=== PATIENT | female | born 1965 | race African-American/Black ===

== ENCOUNTER 2020-11-16 04:44 | Emergency (ER) | payer OTHER ==
[2020-11-16 06:09] LABS: Mean Corpuscular Volume 97.8 fL (78.0-98.0)
[2020-11-16] MEDS ORDERED: Morphine 4 MG/ML VIAL ONE (06:16)
[2020-11-16 06:23] LABS: Lymphocytes 34 % (21-51); MDiff Complete? YES; Monocytes 13 % (0-10); Neutrophil 53 % (42-75); Platelet Morphology Comment Appears Adequate; RBC Morphology Normal
[2020-11-16 06:24] LABS: Hemoglobin 15.2 g/dL (12.0-16.0); Mean Corpuscular HGB CONC 32.3 g/dL (32.0-36.0); Mean Corpuscular Hemoglobin 31.6 pg (27.0-31.0); Mean Platelet Volume 8.7 fL (7.4-10.4); Platelet Count 217 thou/uL (130-400); RBC Distribution Width 15.6 % (11.5-14.5); Red Blood Cell (RBC) Count 4.81 mill/uL (4.20-5.40); White Blood Cell (WBC) Count 10.5 thou/uL (4.8-10.8)
[2020-11-16 06:35] LABS: ALT (SGPT) 25 U/L (8-55); AST (SGOT) 24 U/L (5-34); Albumin 3.4 g/dL (3.5-5.0); Alkaline Phosphatase 135 U/L (40-110); Anion Gap 11 mmol/L (10-20); BUN (Urea Nitrogen) 29 mg/dL (9.8-20.1); Bilirubin, Total 2.7 mg/dL (0.2-1.2); Calc. Creatinine Clearance 0 mL/min (70-130); Calcium 9.2 mg/dL (7.8-10.44); Carbon Dioxide 25 mmol/L (22-29); Chloride 105 mmol/L (98-107); Globulin 3.8 g/dL (2.4-3.5); Glucose 100 mg/dL (70-105); Lipase 15 U/L (8-78); Potassium 4.4 mmol/L (3.5-5.1); Protein, Total 7.2 g/dL (6.0-8.3); Sodium 137 mmol/L (136-145)
[2020-11-16 06:57] LABS: CKMB 2.5 ng/mL (0-6.6)
[2020-11-16 07:04] LABS: Bilirubin Negative (Negative); Blood, Urine Trace (Negative); Clarity Clear (Clear); Glucose, Urine (Dipstick) Normal (Negative); Ketone, Urine Negative (Negative); Leukocyte 500 Leu/uL (Negative); Nitrite Negative (Negative); Protein, Urine (Dipstick) 10 mg/dL (Neg-Trace); Specific Gravity, Urine 1.015 (1.002-1.036)
[2020-11-16 07:12] LABS: Transitional Epithelial 0-3 HPF (None Seen)
[2020-11-16 07:13] LABS: Bacteria/HPF 1+ HPF (None Seen)
[2020-11-16] MEDS ORDERED: Iopamidol-370 76% 500 ML 1 ML ONE (10:40)
== END 2020-11-16 08:20 | disposition home or self-care (01) ==
LOC: ERS 04:44
DX: R10.13 Epigastric pain (principal); R10.11 Right upper quadrant pain; R60.1 Generalized edema; I11.0 Hypertensive heart disease with heart failure; I50.9 Heart failure, unspecified; E11.9 Type 2 diabetes mellitus without complications; J44.9 Chronic obstructive pulmonary disease, unspecified; I42.9 Cardiomyopathy, unspecified; Z86.73 Personal history of transient ischemic attack (TIA), and cerebral infarction without residual deficits; Z91.14 Patient's other noncompliance with medication regimen
CPT/HCPCS: 36415; 74177; 80053; 81003; 81015; 82553; 83690; 83880; 84484; 85025; 87086; 93005; 96374; J2270; Q9967

== ENCOUNTER 2020-11-24 00:53 | Inpatient (IN) | payer OTHER ==
[2020-11-24 02:09] LABS: Acetaminophen Less than 6.0 mcg/mL (10.0-30.0); Alcohol Less than 10 mg/dL (Less than 10); CK (CPK) 45 U/L (29-168); Salicylate Less than 8.0 mg/dL (15.0-30.0)
[2020-11-24 02:10] LABS: ALT (SGPT) 147 U/L (8-55); AST (SGOT) 78 U/L (5-34); Albumin 3.3 g/dL (3.5-5.0); Alkaline Phosphatase 184 U/L (40-110); Anion Gap 13 mmol/L (10-20); BUN (Urea Nitrogen) 30 mg/dL (9.8-20.1); Bilirubin, Total 1.4 mg/dL (0.2-1.2); Calc. Creatinine Clearance 0 mL/min (70-130); Calcium 8.7 mg/dL (7.8-10.44); Carbon Dioxide 23 mmol/L (22-29); Chloride 107 mmol/L (98-107); Globulin 3.7 g/dL (2.4-3.5); Glucose 120 mg/dL (70-105); Potassium 4.7 mmol/L (3.5-5.1); Sodium 138 mmol/L (136-145)
[2020-11-24 02:26] LABS: CKMB 2.1 ng/mL (0-6.6)
[2020-11-24] MEDS ORDERED: Furosemide 40 MG/4 ML VIAL ONE (02:50)
[2020-11-24 03:44] LABS: Bilirubin Negative (Negative); Blood, Urine 1+ (Negative); Clarity Clear (Clear); Glucose, Urine (Dipstick) Normal (Negative); Ketone, Urine Negative (Negative); Leukocyte 250 Leu/uL (Negative); Nitrite Negative (Negative); Protein, Urine (Dipstick) 50 mg/dL (Neg-Trace); Specific Gravity, Urine 1.012 (1.002-1.036); Squamous Epithelial 0-3 HPF (0-3); Urobilinogen Normal mg/dL (Less than 2); pH, Urine 5.5 (5.0-9.0)
[2020-11-24 03:48] LABS: Amphetamine Not Detected (NotDetected); Barbiturates Screen Not Detected (NotDetected); Benzodiazepine Screen Not Detected (NotDetected); Cocaine Metabolite Screen Detected (NotDetected); Methadone Not Detected (NotDetected); Methamphetamine Not Detected (NotDetected); Opiate Screen Not Detected (NotDetected); Oxycodone Screen Not Detected (NotDetected); Phencyclidine (PCP) Not Detected (NotDetected); THC/Cannabinoid Screen Not Detected (NotDetected); Tricyclic Screen Not Detected (NotDetected)
[2020-11-24 03:59] LABS: Bacteria/HPF Rare-Few HPF (None Seen)
[2020-11-24] MEDS ORDERED: Aspirin Chewable 81 MG TAB ONE (04:39)
[2020-11-24 07:04] LABS: Troponin I 0.025 ng/mL (< 0.028)
[2020-11-24] MEDS ORDERED: Ondansetron ODT 4 MG TAB PO PRN (07:58)
[2020-11-24] MEDS ORDERED: Albuterol 200 PUFF (6.7GM INHALER) INH PRN (08:09)
[2020-11-24] MEDS: Aspirin 81 mg Enteric Coated Tablet PO SCH (09:55)
[2020-11-24] MEDS: Furosemide 40 MG/4 ML VIAL SLOW IVP SCH (15:48)
[2020-11-24] MEDS: Carvedilol 3.125 MG TAB PO SCH (17:55)
[2020-11-24 18:18] LABS: SARS-CoV-2 PCR by NAA Not Detected (NotDetected)
[2020-11-24] MEDS ORDERED: Diazepam 5 MG TAB PO PRN (20:58)
[2020-11-24] MEDS ORDERED: Thiamine HCl 200 MG/2 ML VIAL IM SCH (21:00)
[2020-11-24] MEDS ORDERED: Diazepam 5 MG TAB PO SCH (21:00)
[2020-11-24] MEDS: Atorvastatin Calcium 40 MG TAB PO SCH (22:09)
[2020-11-24] MEDS: Acetaminophen 325 MG TAB PO PRN (22:20)
[2020-11-25] MEDS ORDERED: Diazepam 5 MG TAB PO PRN (04:00)
[2020-11-25] MEDS: Acetaminophen 325 MG TAB PO PRN ×2 (04:09→20:16)
[2020-11-25] MEDS ORDERED: Levothyroxine Sodium 50 MCG TAB ONE (06:05)
[2020-11-25] MEDS: Furosemide 40 MG/4 ML VIAL SLOW IVP SCH ×3 (06:07→15:08)
[2020-11-25] MEDS: Levothyroxine Sodium 50 MCG TAB PO SCH (08:35)
[2020-11-25] MEDS: Aspirin 81 mg Enteric Coated Tablet PO SCH (09:57)
[2020-11-25] MEDS: Magnesium Oxide 400 MG TAB PO SCH (09:57)
[2020-11-25] MEDS: Folic Acid 1 MG TAB PO SCH (09:57)
[2020-11-25] MEDS: Thiamine 100 MG TAB PO SCH (09:57)
[2020-11-25] MEDS: Carvedilol 3.125 MG TAB PO SCH ×2 (09:57→17:41)
[2020-11-25] MEDS: Multivitamin W/ Minerals 1 TAB PO SCH (09:57)
[2020-11-25 11:04] LABS: Anion Gap 16 mmol/L (10-20); BUN (Urea Nitrogen) 34 mg/dL (9.8-20.1); Calc. Creatinine Clearance 55 mL/min (70-130); Calcium 8.8 mg/dL (7.8-10.44); Carbon Dioxide 23 mmol/L (22-29); Chloride 105 mmol/L (98-107); Glucose 93 mg/dL (70-105); Magnesium 1.8 mg/dL (1.6-2.6); Potassium 4.4 mmol/L (3.5-5.1); Sodium 140 mmol/L (136-145)
[2020-11-25 12:07] LABS: Creatinine, Urine Less than 20.00 mg/dL (47-110); Protein, Urine Random Quant Less than 10 mg/dL (1-14)
[2020-11-25 12:14] LABS: White Blood Cell (WBC) Count 9.2 thou/uL (4.8-10.8)
[2020-11-25 12:15] LABS: Hemoglobin 14.7 g/dL (12.0-16.0); Lymphocytes 43 % (21-51); MDiff Complete? YES; Manual Diff?? YES; Mean Corpuscular HGB CONC 31.9 g/dL (32.0-36.0); Mean Corpuscular Hemoglobin 30.8 pg (27.0-31.0); Mean Corpuscular Volume 96.4 fL (78.0-98.0); Mean Platelet Volume 9.4 fL (7.4-10.4); Monocytes 2 % (0-10); Neutrophil 55 % (42-75); Platelet Count 185 thou/uL (130-400); RBC Distribution Width 15.7 % (11.5-14.5); Red Blood Cell (RBC) Count 4.76 mill/uL (4.20-5.40)
[2020-11-25 12:16] LABS: Platelet Morphology Comment Appears Adequate; RBC Morphology Normal
[2020-11-25 14:41] LABS: Hemoglobin A1c 6.3 % (4.0-6.0)
[2020-11-25 14:45] LABS: Cardiac Risk 4.1 (Less than 4.5)
[2020-11-25 14:58] LABS: Free T4 (Free Thyroxine) 0.78 ng/dL (0.70-1.48)
[2020-11-25 15:12] LABS: HBCM Index 0.24 S/CO (0-0.79); HBSAg Index 0.25 S/CO (0-0.99); Hep A IgM AB Non-Reactive (NonReactive); Hep A IgM S/CO 0.15 S/CO (0-0.79); Hep B Surf Ag Non-Reactive S/CO (NonReactive); Hep C IgG Ab Non-Reactive (NonReactive); Hep C Index 0.25 S/CO (0-0.79); Hepatitis B Core IgM Abs Non-Reactive (NonReactive)
[2020-11-25] MEDS ORDERED: Lisinopril 2.5 MG TAB PO SCH (15:15)
[2020-11-25 15:16] LABS: Phosphorus 4.1 mg/dL (2.3-4.7)
[2020-11-25 15:44] LABS: HIV (1/2) Antibody/Antigen Non-Reactive (NonReactive); HIV 1/2 INDEX 0.08 S/CO (<1.00)
[2020-11-25] MEDS: Atorvastatin Calcium 40 MG TAB PO SCH (20:16)
[2020-11-25] MEDS ORDERED: Melatonin 3 MG TAB PO PRN (22:53)
[2020-11-26] MEDS: Furosemide 40 MG/4 ML VIAL SLOW IVP SCH ×2 (05:06→15:25)
[2020-11-26] MEDS: Levothyroxine Sodium 50 MCG TAB PO SCH (05:06)
[2020-11-26 05:26] LABS: #Basophils 0.1 thou/uL (0.0-0.2); #Eosinphils 0.2 thou/uL (0.0-0.7); #Lymphocytes 3.3 thou/uL (1.20-3.40); #Monocytes 0.7 thou/uL (0.11-0.59); #Neutrophils 4.8 thou/uL (1.40-6.50); %Eosinophils 2.6 % (0.0-10.0); %Lymphocytes 36.4 % (21.0-51.0); %Monocytes 7.2 % (0.0-10.0); %Neutrophils 52.8 % (42.0-75.0); Hemoglobin 13.7 g/dL (12.0-16.0); Mean Corpuscular Hemoglobin 29.6 pg (27.0-31.0); Mean Corpuscular Volume 95.4 fL (78.0-98.0); Mean Platelet Volume 9.1 fL (7.4-10.4); Platelet Count 181 thou/uL (130-400); RBC Distribution Width 15.4 % (11.5-14.5); Red Blood Cell (RBC) Count 4.64 mill/uL (4.20-5.40)
[2020-11-26 05:55] LABS: ALT (SGPT) 76 U/L (8-55); AST (SGOT) 33 U/L (5-34); Albumin 2.9 g/dL (3.5-5.0); Alkaline Phosphatase 145 U/L (40-110); Anion Gap 13 mmol/L (10-20); BUN (Urea Nitrogen) 28 mg/dL (9.8-20.1); Bilirubin, Total 1.3 mg/dL (0.2-1.2); Calc. Creatinine Clearance 57 mL/min (70-130); Calcium 8.5 mg/dL (7.8-10.44); Carbon Dioxide 23 mmol/L (22-29); Chloride 104 mmol/L (98-107); Globulin 3.2 g/dL (2.4-3.5); Glucose 91 mg/dL (70-105); Magnesium 1.7 mg/dL (1.6-2.6); Potassium 3.9 mmol/L (3.5-5.1); Protein, Total 6.1 g/dL (6.0-8.3); Sodium 136 mmol/L (136-145)
[2020-11-26] MEDS: Lisinopril 2.5 MG TAB PO SCH (09:12)
[2020-11-26] MEDS: Aspirin 81 mg Enteric Coated Tablet PO SCH (09:12)
[2020-11-26] MEDS: Multivitamin W/ Minerals 1 TAB PO SCH (09:12)
[2020-11-26] MEDS: Magnesium Oxide 400 MG TAB PO SCH (09:12)
[2020-11-26] MEDS: Thiamine 100 MG TAB PO SCH (09:12)
[2020-11-26] MEDS: Folic Acid 1 MG TAB PO SCH (09:12)
[2020-11-26] MEDS: Carvedilol 3.125 MG TAB PO SCH ×2 (09:15→16:24)
[2020-11-26] MEDS: Atorvastatin Calcium 40 MG TAB PO SCH (21:44)
[2020-11-27 04:49] VITALS: BMI 27.6
[2020-11-27 05:13] LABS: #Basophils 0.1 thou/uL (0.0-0.2); #Eosinphils 0.3 thou/uL (0.0-0.7); #Lymphocytes 3.2 thou/uL (1.20-3.40); #Monocytes 0.7 thou/uL (0.11-0.59); #Neutrophils 3.8 thou/uL (1.40-6.50); %Basophils 1.1 % (0.0-1.0); %Eosinophils 3.2 % (0.0-10.0); %Lymphocytes 39.4 % (21.0-51.0); %Monocytes 8.8 % (0.0-10.0); %Neutrophils 47.5 % (42.0-75.0); Hemoglobin 13.6 g/dL (12.0-16.0); Mean Corpuscular Hemoglobin 29.5 pg (27.0-31.0); Mean Corpuscular Volume 95.1 fL (78.0-98.0); Platelet Count 185 thou/uL (130-400); RBC Distribution Width 15.5 % (11.5-14.5); Red Blood Cell (RBC) Count 4.63 mill/uL (4.20-5.40); White Blood Cell (WBC) Count 8.1 thou/uL (4.8-10.8)
[2020-11-27 05:39] LABS: ALT (SGPT) 62 U/L (8-55); AST (SGOT) 25 U/L (5-34); Alkaline Phosphatase 142 U/L (40-110); Anion Gap 10 mmol/L (10-20); BUN (Urea Nitrogen) 27 mg/dL (9.8-20.1); Bilirubin, Total 1.2 mg/dL (0.2-1.2); Calc. Creatinine Clearance 55 mL/min (70-130); Calcium 8.6 mg/dL (7.8-10.44); Carbon Dioxide 28 mmol/L (22-29); Chloride 104 mmol/L (98-107); Globulin 3.3 g/dL (2.4-3.5); Glucose 88 mg/dL (70-105); Protein, Total 6.3 g/dL (6.0-8.3); Sodium 138 mmol/L (136-145)
[2020-11-27] MEDS: Levothyroxine Sodium 50 MCG TAB PO SCH (05:40)
[2020-11-27 07:23] VITALS: BP 110/84; TEMP 98
[2020-11-27] MEDS: Folic Acid 1 MG TAB PO SCH (08:53)
[2020-11-27] MEDS: Thiamine 100 MG TAB PO SCH (08:53)
[2020-11-27] MEDS: Multivitamin W/ Minerals 1 TAB PO SCH (08:54)
[2020-11-27] MEDS: Magnesium Oxide 400 MG TAB PO SCH (08:54)
[2020-11-27] MEDS: Aspirin 81 mg Enteric Coated Tablet PO SCH (08:54)
[2020-11-27] MEDS: Lisinopril 2.5 MG TAB PO SCH (08:54)
[2020-11-27] MEDS: Carvedilol 3.125 MG TAB PO SCH (08:54)
[2020-11-27] MEDS ORDERED: Furosemide 40 MG TAB PO SCH (09:00)
== END 2020-11-27 11:10 | disposition home or self-care (01) | DRG 314 ==
LOC: ERS 00:53 → ERHOLD 04:39 → 2NO 08:35
PROVIDERS: ADMIT Student in an Organized Health Care Education/Training Program; ATTEND Family Medicine
DX: I42.7 Cardiomyopathy due to drug and external agent (principal); I50.23 Acute on chronic systolic (congestive) heart failure; I13.0 Hypertensive heart and chronic kidney disease with heart failure and stage 1 through stage 4 chronic kidney disease, or unspecified chronic kidney disease; R45.851 Suicidal ideations; N17.9 Acute kidney failure, unspecified; I47.2 Ventricular tachycardia; I42.0 Dilated cardiomyopathy; F41.9 Anxiety disorder, unspecified; F14.10 Cocaine abuse, uncomplicated; J44.9 Chronic obstructive pulmonary disease, unspecified; K76.1 Chronic passive congestion of liver; F32.9 Major depressive disorder, single episode, unspecified; E11.22 Type 2 diabetes mellitus with diabetic chronic kidney disease; N18.9 Chronic kidney disease, unspecified; E03.9 Hypothyroidism, unspecified; T40.5X5A Adverse effect of cocaine, initial encounter; Z20.822 Contact with and (suspected) exposure to COVID-19; I25.10 Atherosclerotic heart disease of native coronary artery without angina pectoris; F17.210 Nicotine dependence, cigarettes, uncomplicated; Z86.73 Personal history of transient ischemic attack (TIA), and cerebral infarction without residual deficits; Z88.8 Allergy status to other drugs, medicaments and biological substances; Z79.82 Long term (current) use of aspirin; Z79.51 Long term (current) use of inhaled steroids; Z91.19 Patient's noncompliance with other medical treatment and regimen; Z71.51 Drug abuse counseling and surveillance of drug abuser
CPT/HCPCS: 36415; 36416; 71045; 76770; 80048; 80053; 80061; 80074; 80306; 80307; 81003; 81015; 82550; 82553; 82570; 83036; 83735; 83880; 84100; 84156; 84439; 84443; 84481; 84484; 85025; 87389; 93005; 93306; 93798; 96374; 97139; J1940; J3411; J3475; J3490; U0003; U0005

== ENCOUNTER 2020-12-25 11:29 | Emergency (ER) | payer OTHER ==
[2020-12-25] MEDS ORDERED: Boostrix 0.5 ML (Tdap) VIAL ONE (13:35)
[2020-12-25] MEDS ORDERED: ceFAZolin 2 GM/DEX 5% 100 ML BAG ONE (13:35)
== END 2020-12-25 12:57 | disposition home or self-care (01) ==
LOC: ERS 11:29
DX: K04.7 Periapical abscess without sinus (principal); K02.9 Dental caries, unspecified; M79.604 Pain in right leg; I11.0 Hypertensive heart disease with heart failure; I50.9 Heart failure, unspecified; I43 Cardiomyopathy in diseases classified elsewhere; E11.9 Type 2 diabetes mellitus without complications; J44.9 Chronic obstructive pulmonary disease, unspecified
CPT/HCPCS: 90715; 99283

== ENCOUNTER 2021-01-17 13:50 | Inpatient (IN) | payer OTHER ==
[~2021-01-17 13:50] MED LIST: Iopamidol-370 76% 500 ML 1 ML ONE
[2021-01-17] MEDS ORDERED: Ondansetron PF 4 MG/2 ML Vial ONE (16:10)
[2021-01-17] MEDS ORDERED: Albuterol 200 PUFF (6.7GM INHALER) ONE (16:10)
[2021-01-17 16:28] LABS: #Eosinphils 0.1 thou/uL (0.0-0.7); #Lymphocytes 2.6 thou/uL (1.20-3.40); #Monocytes 0.6 thou/uL (0.11-0.59); %Basophils 0.8 % (0.0-1.0); %Eosinophils 1.3 % (0.0-10.0); %Lymphocytes 41.1 % (21.0-51.0); %Neutrophils 47.8 % (42.0-75.0); Hemoglobin 16.1 g/dL (12.0-16.0); Mean Corpuscular HGB CONC 31.2 g/dL (32.0-36.0); Mean Corpuscular Hemoglobin 29.8 pg (27.0-31.0); Mean Corpuscular Volume 95.4 fL (78.0-98.0); Mean Platelet Volume 9.1 fL (7.4-10.4); Platelet Count 188 thou/uL (130-400); RBC Distribution Width 14.6 % (11.5-14.5); White Blood Cell (WBC) Count 6.3 thou/uL (4.8-10.8)
[2021-01-17 16:46] LABS: ALT (SGPT) 18 U/L (8-55); AST (SGOT) 31 U/L (5-34); Albumin 3.5 g/dL (3.5-5.0); Alkaline Phosphatase 143 U/L (40-110); Anion Gap 17 mmol/L (10-20); BUN (Urea Nitrogen) 32 mg/dL (9.8-20.1); Bilirubin, Total 3.1 mg/dL (0.2-1.2); Calc. Creatinine Clearance 0 mL/min (70-130); Calcium 9.5 mg/dL (7.8-10.44); Carbon Dioxide 24 mmol/L (22-29); Chloride 101 mmol/L (98-107); Globulin 4.2 g/dL (2.4-3.5); Glucose 105 mg/dL (70-105); Lipase 13 U/L (8-78); Potassium 4.5 mmol/L (3.5-5.1); Protein, Total 7.7 g/dL (6.0-8.3); Sodium 137 mmol/L (136-145)
[2021-01-17 17:25] LABS: Bacteria/HPF None Seen HPF (None Seen); Bilirubin 1+ (Negative); Blood, Urine Negative (Negative); Clarity Clear (Clear); Glucose, Urine (Dipstick) Normal (Negative); Ketone, Urine Trace mg/dL (Negative); Leukocyte 25 Leu/uL (Negative); Nitrite Negative (Negative); Protein, Urine (Dipstick) 70 mg/dL (Neg-Trace); RBC/HPF 0-3 HPF (0-3); Specific Gravity, Urine 1.028 (1.002-1.036); Squamous Epithelial 0-3 HPF (0-3); WBC/HPF 0-3 HPF (0-3)
[2021-01-17 17:41] LABS: CKMB 1.8 ng/mL (0-6.6)
[2021-01-17] MEDS ORDERED: Aspirin Chewable 81 MG TAB ONE (18:26)
[2021-01-17] MEDS ORDERED: Carvedilol 3.125 MG TAB PO SCH (18:30)
[2021-01-17 20:19] LABS: Troponin I 0.038 ng/mL (< 0.028)
[2021-01-17] MEDS ORDERED: Sodium Chloride 0.9% 1,000 ML IV SCH (21:15)
[2021-01-17] MEDS ORDERED: Ondansetron PF 4 MG/2 ML Vial IVP PRN (21:23)
[2021-01-17 22:10] LABS: SARS-CoV-2 NAA Rapid Test Not Detected (NotDetected)
[2021-01-17] MEDS: GUAIFENESIN SF SOLN 200 MG/10 ML UDCUP PO PRN (23:19)
[2021-01-17] MEDS: Acetaminophen 325 MG TAB PO PRN (23:19)
[2021-01-17 23:25] LABS: Troponin I 0.036 ng/mL (< 0.028)
[2021-01-18] MEDS ORDERED: Dextrose 5% in Water 1,000 ML IV PRN (00:05)
[2021-01-18] MEDS ORDERED: Nitroglycerin 0.4 MG TAB (25 Tab Bottle) SL PRN (00:09)
[2021-01-18] MEDS ORDERED: Sodium Chloride 0.9% 1,000 ML IV SCH (00:15)
[2021-01-18] MEDS ORDERED: Benzonatate 100 MG CAP PO PRN (00:23)
[2021-01-18] MEDS ORDERED: Azithromycin 500 MG in Sodium Chloride 0.9% 250 ML 250 ML IVPB SCH (01:00)
[2021-01-18 01:04] LABS: Amphetamine Not Detected (NotDetected); Barbiturates Screen Not Detected (NotDetected); Benzodiazepine Screen Not Detected (NotDetected); Cocaine Metabolite Screen Detected (NotDetected); Methadone Not Detected (NotDetected); Methamphetamine Not Detected (NotDetected); Opiate Screen Not Detected (NotDetected); Oxycodone Screen Not Detected (NotDetected); Phencyclidine (PCP) Not Detected (NotDetected); THC/Cannabinoid Screen Detected (NotDetected); Tricyclic Screen Not Detected (NotDetected)
[2021-01-18] MEDS ORDERED: Sodium Bicarb 50 MEQ/50 ML Abboject 8.4% SYRINGE ONE ×3 (01:36→03:39)
[2021-01-18] MEDS ORDERED: EPINEPHrine 1 MG/10 ML Abboject SYRINGE ONE (01:36)
[2021-01-18] MEDS: EPINEPHrine 4 MG in Dextrose 5% in Water 250 ML IV PRN ×3 (01:55→10:25)
[2021-01-18] MEDS: Norepinephrine 8 MG/0.9% NS 250 ML IVPB SCH ×2 (02:15→20:14)
[2021-01-18] MEDS ORDERED: Norepinephrine 8 MG/0.9% NS 250 ML ONE (02:17)
[2021-01-18 02:23] LABS: Actual Bicarbonate (HCO3a) 11.9 mEq/L (22-28); Base Excess (BEa) -17.5 mEq/L (-2.0 to +3.0); CO2 Tension 40.7 mmHg (35.0-45.0); Calcium, Ionized (arterial) 1.09 mmol/L (1.12-1.30); Carboxyhemoglobin (COHb) 0.6 gm% (0.0-3.0); Hemoglobin (Hb) 15.5 g/dL (12.0-16.0); O2 Tension (PaO2), arterial 70.1 mmHg (80.0-100.0)
[2021-01-18 02:25] LABS: pH, Arterial 7.08 (7.35-7.45)
[2021-01-18 02:26] LABS: Puncture Site RRA
[2021-01-18 02:28] LABS: ALV-art Gradient 592.025 mmHg (0-20)
[2021-01-18] MEDS ORDERED: Sodium Bicarb 50 MEQ/50 ML Abboject 8.4% SYRINGE IVP SCH ×2 (02:45→03:45)
[2021-01-18] MEDS: Sodium Bicarbonate 150 MEQ in Dextrose 5 %-0.45 % NaCl 1,000 ML IV SCH ×2 (03:43→14:45)
[2021-01-18] MEDS ORDERED: Morphine 2 MG/ML VIAL SLOW IVP PRN (05:00)
[2021-01-18] MEDS ORDERED: DISCONTINUE PREVIOUS NARCOTIC PAIN MEDICATIONS AND BENZODIAZEPINES FS SCH (05:00)
[2021-01-18] MEDS ORDERED: Propofol BOLUS 1,000 MG/100 ML VIAL IV PRN (05:00)
[2021-01-18] MEDS ORDERED: Fentanyl CADD 100 ML IV SCH (05:00)
[2021-01-18] MEDS ORDERED: Fentanyl BOLUS 250 ML IVPB PRN (05:00)
[2021-01-18 05:09] LABS: BUN (Urea Nitrogen) 28 mg/dL (9.8-20.1); Calc. Creatinine Clearance 44 mL/min (70-130)
[2021-01-18 05:11] LABS: Magnesium 1.9 mg/dL (1.6-2.6)
[2021-01-18 05:26] LABS: Band 10 % (5-11); Hemoglobin 13.8 g/dL (12.0-16.0); Lymphocytes 28 % (21-51); MDiff Complete? YES; Mean Corpuscular HGB CONC 31.1 g/dL (32.0-36.0); Mean Corpuscular Hemoglobin 30.6 pg (27.0-31.0); Mean Corpuscular Volume 98.5 fL (78.0-98.0); Mean Platelet Volume 8.6 fL (7.4-10.4); Metamyelocyte 1 % (0-0); Monocytes 2 % (0-10); Neutrophil 50 % (42-75); Platelet Count 121 thou/uL (130-400); RBC Distribution Width 14.9 % (11.5-14.5); Reactive Lymphocytes 9 % (0-10); Red Blood Cell (RBC) Count 4.52 mill/uL (4.20-5.40); White Blood Cell (WBC) Count 10.7 thou/uL (4.8-10.8)
[2021-01-18 05:31] LABS: ALT (SGPT) 29 U/L (8-55); AST (SGOT) 70 U/L (5-34); Albumin 2.3 g/dL (3.5-5.0); Alkaline Phosphatase 123 U/L (40-110); Anion Gap 26 mmol/L (10-20); Bilirubin, Total 2.6 mg/dL (0.2-1.2); Calcium 6.9 mg/dL (7.8-10.44); Carbon Dioxide 18 mmol/L (22-29); Chloride 106 mmol/L (98-107); Globulin 3.1 g/dL (2.4-3.5); Glucose 45 mg/dL (70-105); Potassium 3.9 mmol/L (3.5-5.1); Protein, Total 5.4 g/dL (6.0-8.3); Sodium 147 mmol/L (136-145)
[2021-01-18] MEDS ORDERED: Dextrose 50% Abboject 50 ML SYRINGE ONE ×2 (05:31→05:32)
[2021-01-18] MEDS: Dextrose 50% Abboject 50 ML SYRINGE SLOW IVP PRN ×2 (05:40→05:56)
[2021-01-18] MEDS ORDERED: Vecuronium 10 MG VIAL ONE (05:43)
[2021-01-18] MEDS ORDERED: Sterile Water 10 ML ONE (05:44)
[2021-01-18] MEDS: Lorazepam 2 MG/ML VIAL SLOW IVP PRN ×2 (05:44→14:01)
[2021-01-18] MEDS ORDERED: Vecuronium 10 MG VIAL IV PRN (05:58)
[2021-01-18] MEDS ORDERED: methylPREDNISolone Sod Succ/PF 125 MG/2 ML VIAL IVP SCH (06:00)
[2021-01-18] MEDS: methylPREDNISolone Sod Succ 40 MG VIAL IVP SCH ×3 (07:03→17:01)
[2021-01-18] MEDS ORDERED: predniSONE 20 MG TAB PO SCH (09:00)
[2021-01-18] MEDS: Morphine 4 MG/ML VIAL SLOW IVP PRN (14:01)
[2021-01-18 21:14] LABS: Anion Gap 18 mmol/L (10-20); BUN (Urea Nitrogen) 34 mg/dL (9.8-20.1); Calc. Creatinine Clearance 35 mL/min (70-130); Calcium 7.5 mg/dL (7.8-10.44); Carbon Dioxide 26 mmol/L (22-29); Chloride 104 mmol/L (98-107); Glucose 189 mg/dL (70-105); Magnesium 1.5 mg/dL (1.6-2.6); Sodium 145 mmol/L (136-145)
[2021-01-18 21:16] LABS: Potassium 2.9 mmol/L (3.5-5.1)
[2021-01-18] MEDS ORDERED: Magnesium Sulfate 4 GM in Sodium Chloride 0.9% 250 ML 250 ML IVPB SCH (22:30)
[2021-01-18] MEDS: Potassium Bicarbonate/Cit Ac 20 MEQ TAB PER TUBE SCH (22:50)
[2021-01-19] MEDS: Potassium Bicarbonate/Cit Ac 20 MEQ TAB PER TUBE SCH ×2 (00:50→01:58)
[2021-01-19] MEDS: Sodium Bicarbonate 150 MEQ in Dextrose 5 %-0.45 % NaCl 1,000 ML IV SCH ×2 (00:50→10:22)
[2021-01-19] MEDS: methylPREDNISolone Sod Succ 40 MG VIAL IVP SCH ×3 (00:50→11:43)
[2021-01-19] MEDS: Lorazepam 2 MG/ML VIAL SLOW IVP PRN ×4 (01:58→18:14)
[2021-01-19 05:05] LABS: Anion Gap 18 mmol/L (10-20); BUN (Urea Nitrogen) 32 mg/dL (9.8-20.1); Calc. Creatinine Clearance 35 mL/min (70-130); Calcium 7.9 mg/dL (7.8-10.44); Carbon Dioxide 29 mmol/L (22-29); Chloride 103 mmol/L (98-107); Glucose 183 mg/dL (70-105); Magnesium 2.5 mg/dL (1.6-2.6); Potassium 4.6 mmol/L (3.5-5.1); Sodium 145 mmol/L (136-145)
[2021-01-19] MEDS: HumaLOG 300 UNITS/3 ML VIAL SC PRN ×3 (09:54→22:30)
[2021-01-19] MEDS: Midazolam HCl 2 mg/2 ml Vial SLOW IVP PRN (11:42)
[2021-01-19] MEDS: Acetaminophen 325 MG TAB PO PRN (11:44)
[2021-01-19] MEDS: Norepinephrine 8 MG/0.9% NS 250 ML IVPB SCH (12:34)
[2021-01-19] MEDS ORDERED: Metoprolol Tartrate 5 MG/5 ML VIAL ONE (13:25)
[2021-01-19] MEDS ORDERED: Phenylephrine 40 MG in Sodium Chloride 0.9% 250 ML 250 ML IVPB SCH (13:30)
[2021-01-19] MEDS ORDERED: Piperacillin/Tazobactam 2.5 GM in Sodium Chloride 0.9% 100 ML IVPB SCH ×2 (13:45→14:00)
[2021-01-19] MEDS ORDERED: Vancomycin HCl 1.25 GM in Sodium Chloride 0.9% 250 ML 300 ML IVPB SCH (13:45)
[2021-01-19] MEDS: Lorazepam 1 MG TAB PO SCH ×2 (14:33→19:44)
[2021-01-19] MEDS: Vancomycin HCl 1.25 GM in Sodium Chloride 0.9% 250 ML 300 ML IVPB SCH (14:35)
[2021-01-19 16:14] LABS: Actual Bicarbonate (HCO3a) 26.7 mEq/L (22-28); Base Excess (BEa) 8.3 mEq/L (-2.0 to +3.0); Calcium, Ionized (arterial) 0.99 mmol/L (1.12-1.30); Carboxyhemoglobin (COHb) 1.1 gm% (0.0-3.0); Hemoglobin (Hb) 15.7 g/dL (12.0-16.0); O2 Tension (PaO2), arterial 69.8 mmHg (80.0-100.0); Potassium - ABG Lab 3.15 mmol/L (3.70-5.30)
[2021-01-19 16:37] LABS: pH, Arterial 7.69 (7.35-7.45)
[2021-01-19 16:38] LABS: CO2 Tension 22.8 mmHg (35.0-45.0); Puncture Site LRA
[2021-01-19] MEDS: pyridOXINE 50 MG (B6) TAB PO SCH (19:59)
[2021-01-19] MEDS: Ascorbic Acid 500 mg Chewable Tablet PO SCH (19:59)
[2021-01-19] MEDS ORDERED: Famotidine 20 MG TAB PO SCH (21:00)
[2021-01-19] MEDS ORDERED: Enoxaparin Sodium 40 MG/0.4 ML SYRINGE SC SCH (21:00)
[2021-01-19] MEDS: Piperacillin/Tazobactam 2.5 GM in Sodium Chloride 0.9% 100 ML IVPB SCH (22:29)
[2021-01-20] MEDS: Lorazepam 1 MG TAB PO SCH ×4 (00:48→19:45)
[2021-01-20] MEDS: Piperacillin/Tazobactam 2.5 GM in Sodium Chloride 0.9% 100 ML IVPB SCH ×3 (05:13→21:03)
[2021-01-20] MEDS: pyridOXINE 50 MG (B6) TAB PO SCH ×2 (09:04→19:46)
[2021-01-20] MEDS: Ascorbic Acid 500 mg Chewable Tablet PO SCH ×2 (09:04→19:45)
[2021-01-20] MEDS: Cholecalciferol (Vitamin D3) 400 UNITS TAB PO SCH (09:04)
[2021-01-20] MEDS: Cyanocobalamin (Vitamin B-12) 1,000 MCG TAB PO SCH (09:14)
[2021-01-20 12:17] LABS: ALT (SGPT) 32 U/L (8-55); AST (SGOT) 57 U/L (5-34); Albumin 2.2 g/dL (3.5-5.0); Alkaline Phosphatase 112 U/L (40-110); Anion Gap 15 mmol/L (10-20); BUN (Urea Nitrogen) 38 mg/dL (9.8-20.1); Bilirubin, Total 4.7 mg/dL (0.2-1.2); Calc. Creatinine Clearance 34 mL/min (70-130); Carbon Dioxide 29 mmol/L (22-29); Chloride 108 mmol/L (98-107); Globulin 3.1 g/dL (2.4-3.5); Glucose 162 mg/dL (70-105); Potassium 3.1 mmol/L (3.5-5.1); Protein, Total 5.3 g/dL (6.0-8.3); Sodium 149 mmol/L (136-145)
[2021-01-20 12:18] LABS: INR-International Normal Ratio 1.3; PTT 34.8 sec (22.9-36.1); Prothrombin Time 16.4 sec (12.0-14.7)
[2021-01-20 12:36] LABS: Free T4 (Free Thyroxine) 0.73 ng/dL (0.70-1.48); Thyroid Stimulating Hormone 0.6911 uIU/mL (0.35-4.94)
[2021-01-20 13:00] LABS: Vitamin D, 25 Hydroxy Less than 48.0 ng/ml (> 30.0)
[2021-01-20 13:13] LABS: Band 35 % (5-11); Helmet Cells SLIGHT = 2-5 cells (100X) (0-1/hpf); Hemoglobin 13.7 g/dL (12.0-16.0); Hypochromia SLIGHT = 6-15 cells (100X) (0-5/hpf); Lymphocytes 1 % (21-51); MDiff Complete? YES; Mean Corpuscular HGB CONC 31.7 g/dL (32.0-36.0); Mean Corpuscular Hemoglobin 30.4 pg (27.0-31.0); Mean Corpuscular Volume 95.8 fL (78.0-98.0); Mean Platelet Volume 10.8 fL (7.4-10.4); Monocytes 2 % (0-10); Neutrophil 60 % (42-75); Platelet Count 80 thou/uL (130-400); Platelet Morphology Comment Appears Decreased; Polychromasia MODERATE = 3-4 cells (100X) (0-2/hpf); RBC Distribution Width 15.1 % (11.5-14.5); Reactive Lymphocytes 2 % (0-10); Red Blood Cell (RBC) Count 4.53 mill/uL (4.20-5.40); Schistocytes SLIGHT = 2-5 cells (100X) (0-1/hpf); Target Cells SLIGHT = 2-5 cells (100X) (0-1/hpf); Tear Drops SLIGHT = 2-5 cells (100X) (0-1/hpf)
[2021-01-20] MEDS: Vancomycin HCl 1.25 GM in Sodium Chloride 0.9% 250 ML 300 ML IVPB SCH (14:48)
[2021-01-20] MEDS ORDERED: Potassium Chloride 20 MEQ TAB PER TUBE SCH (17:00)
[2021-01-20] MEDS: Famotidine 20 MG TAB PO SCH (19:46)
[2021-01-20] MEDS: Enoxaparin Sodium 30 MG/0.3 ML SYRINGE SC SCH (21:06)
[2021-01-20] MEDS: Midazolam HCl 2 mg/2 ml Vial SLOW IVP PRN (22:00)
[2021-01-20] MEDS: Morphine 4 MG/ML VIAL SLOW IVP PRN (22:00)
[2021-01-21] MEDS: Lorazepam 1 MG TAB PO SCH ×3 (01:51→13:18)
[2021-01-21] MEDS: Midazolam HCl 2 mg/2 ml Vial SLOW IVP PRN ×2 (01:51→05:59)
[2021-01-21 04:20] LABS: ALT (SGPT) 32 U/L (8-55); AST (SGOT) 46 U/L (5-34); Albumin 2.3 g/dL (3.5-5.0); Alkaline Phosphatase 117 U/L (40-110); Anion Gap 12 mmol/L (10-20); BUN (Urea Nitrogen) 42 mg/dL (9.8-20.1); Bilirubin, Total 3.6 mg/dL (0.2-1.2); Calc. Creatinine Clearance 34 mL/min (70-130); Calcium 8.2 mg/dL (7.8-10.44); Carbon Dioxide 33 mmol/L (22-29); Chloride 106 mmol/L (98-107); Globulin 3.1 g/dL (2.4-3.5); Glucose 125 mg/dL (70-105); Potassium 3.7 mmol/L (3.5-5.1); Protein, Total 5.4 g/dL (6.0-8.3); Sodium 147 mmol/L (136-145)
[2021-01-21] MEDS: Piperacillin/Tazobactam 2.5 GM in Sodium Chloride 0.9% 100 ML IVPB SCH ×3 (05:07→21:01)
[2021-01-21] MEDS: Ascorbic Acid 500 mg Chewable Tablet PO SCH ×2 (08:46→20:49)
[2021-01-21] MEDS: Cholecalciferol (Vitamin D3) 400 UNITS TAB PO SCH (08:46)
[2021-01-21] MEDS: Cyanocobalamin (Vitamin B-12) 1,000 MCG TAB PO SCH (08:46)
[2021-01-21] MEDS: pyridOXINE 50 MG (B6) TAB PO SCH ×2 (08:46→20:50)
[2021-01-21 14:19] LABS: Hemoglobin 14.2 g/dL (12.0-16.0); Mean Corpuscular HGB CONC 30.7 g/dL (32.0-36.0); Mean Corpuscular Hemoglobin 29.9 pg (27.0-31.0); Mean Corpuscular Volume 97.5 fL (78.0-98.0); Mean Platelet Volume 10.7 fL (7.4-10.4); Platelet Count 97 thou/uL (130-400); RBC Distribution Width 15.3 % (11.5-14.5); Red Blood Cell (RBC) Count 4.75 mill/uL (4.20-5.40); White Blood Cell (WBC) Count 23.8 thou/uL (4.8-10.8)
[2021-01-21] MEDS: Vancomycin HCl 1.25 GM in Sodium Chloride 0.9% 250 ML 300 ML IVPB SCH (14:33)
[2021-01-21 14:35] LABS: Vancomycin, Trough 19.4 ug/mL
[2021-01-21 15:20] LABS: Band 31 % (5-11); Lymphocytes 3 % (21-51); MDiff Complete? YES; Monocytes 2 % (0-10); Neutrophil 61 % (42-75); Platelet Morphology Comment Appears Decreased; Polychromasia SLIGHT = 2-3 cells (100X) (0-2/hpf); Reactive Lymphocytes 3 % (0-10); Target Cells SLIGHT = 2-5 cells (100X) (0-1/hpf)
[2021-01-21] MEDS: Enoxaparin Sodium 30 MG/0.3 ML SYRINGE SC SCH (20:49)
[2021-01-21] MEDS: Famotidine 20 MG TAB PO SCH (20:49)
[2021-01-21] MEDS: Propofol 1,000 MG/100 ML VIAL IV PRN (20:51)
[2021-01-22] MEDS: Piperacillin/Tazobactam 2.5 GM in Sodium Chloride 0.9% 100 ML IVPB SCH (05:03)
[2021-01-22] MEDS: Propofol 1,000 MG/100 ML VIAL IV PRN ×3 (06:43→20:14)
[2021-01-22 07:41] LABS: ALT (SGPT) 30 U/L (8-55); AST (SGOT) 41 U/L (5-34); Albumin 2.4 g/dL (3.5-5.0); Alkaline Phosphatase 165 U/L (40-110); Anion Gap 17 mmol/L (10-20); BUN (Urea Nitrogen) 49 mg/dL (9.8-20.1); Bilirubin, Total 3.5 mg/dL (0.2-1.2); Calc. Creatinine Clearance 40 mL/min (70-130); Calcium 8.9 mg/dL (7.8-10.44); Carbon Dioxide 25 mmol/L (22-29); Chloride 110 mmol/L (98-107); Globulin 3.8 g/dL (2.4-3.5); Glucose 105 mg/dL (70-105); Potassium 4.4 mmol/L (3.5-5.1); Protein, Total 6.2 g/dL (6.0-8.3); Sodium 148 mmol/L (136-145)
[2021-01-22] MEDS: Cyanocobalamin (Vitamin B-12) 1,000 MCG TAB PO SCH (08:34)
[2021-01-22] MEDS: pyridOXINE 50 MG (B6) TAB PO SCH ×2 (08:35→20:11)
[2021-01-22] MEDS: Ascorbic Acid 500 mg Chewable Tablet PO SCH ×2 (08:35→20:11)
[2021-01-22] MEDS: Cholecalciferol (Vitamin D3) 400 UNITS TAB PO SCH (08:35)
[2021-01-22] MEDS: HumaLOG 300 UNITS/3 ML VIAL SC PRN (09:57)
[2021-01-22] MEDS ORDERED: D5 1/2 NS 500 ML IV SCH (10:45)
[2021-01-22 11:04] LABS: Hemoglobin 14.7 g/dL (12.0-16.0); Mean Corpuscular HGB CONC 30.6 g/dL (32.0-36.0); Mean Corpuscular Hemoglobin 28.9 pg (27.0-31.0); Mean Corpuscular Volume 94.5 fL (78.0-98.0); Platelet Count 100 thou/uL (130-400); Red Blood Cell (RBC) Count 5.09 mill/uL (4.20-5.40)
[2021-01-22 11:30] LABS: Band 4 % (5-11); Lymphocytes 11 % (21-51); MDiff Complete? YES; Monocytes 2 % (0-10); Neutrophil 79 % (42-75); Platelet Morphology Comment Appears Decreased; RBC Morphology Normal; Reactive Lymphocytes 4 % (0-10)
[2021-01-22] MEDS: Piperacillin/Tazobactam 3.375 GM in Sodium Chloride 0.9% 100 ML IVPB SCH ×2 (14:08→21:29)
[2021-01-22] MEDS: Famotidine 20 MG TAB PO SCH (20:11)
[2021-01-22] MEDS: Enoxaparin Sodium 40 MG/0.4 ML SYRINGE SC SCH (20:14)
[2021-01-23] MEDS: Piperacillin/Tazobactam 3.375 GM in Sodium Chloride 0.9% 100 ML IVPB SCH ×3 (05:31→20:51)
[2021-01-23 06:17] LABS: Band 1 % (5-11); Eosinophils 1 % (0-10); Hemoglobin 13.4 g/dL (12.0-16.0); Lymphocytes 19 % (21-51); MDiff Complete? YES; Mean Corpuscular HGB CONC 30.9 g/dL (32.0-36.0); Mean Corpuscular Hemoglobin 29.7 pg (27.0-31.0); Mean Platelet Volume 10.4 fL (7.4-10.4); Monocytes 7 % (0-10); Neutrophil 72 % (42-75); Platelet Count 101 thou/uL (130-400); Platelet Morphology Comment Appears Decreased; RBC Distribution Width 14.9 % (11.5-14.5); Red Blood Cell (RBC) Count 4.52 mill/uL (4.20-5.40); White Blood Cell (WBC) Count 13.4 thou/uL (4.8-10.8)
[2021-01-23] MEDS: Propofol 1,000 MG/100 ML VIAL IV PRN (10:05)
[2021-01-23] MEDS: Cholecalciferol (Vitamin D3) 400 UNITS TAB PO SCH (10:06)
[2021-01-23] MEDS: Cyanocobalamin (Vitamin B-12) 1,000 MCG TAB PO SCH (10:06)
[2021-01-23] MEDS: Ascorbic Acid 500 mg Chewable Tablet PO SCH ×2 (10:06→20:52)
[2021-01-23] MEDS: pyridOXINE 50 MG (B6) TAB PO SCH ×2 (10:06→20:56)
[2021-01-23 10:37] LABS: Anion Gap 16 mmol/L (10-20); BUN (Urea Nitrogen) 42 mg/dL (9.8-20.1); Calc. Creatinine Clearance 47 mL/min (70-130); Calcium 8.4 mg/dL (7.8-10.44); Carbon Dioxide 27 mmol/L (22-29); Chloride 109 mmol/L (98-107); Glucose 94 mg/dL (70-105); Magnesium 2.1 mg/dL (1.6-2.6); Phosphorus 3.2 mg/dL (2.3-4.7); Potassium 4.2 mmol/L (3.5-5.1); Sodium 148 mmol/L (136-145)
[2021-01-23] MEDS: Famotidine 20 MG TAB PO SCH (20:52)
[2021-01-23] MEDS: Enoxaparin Sodium 40 MG/0.4 ML SYRINGE SC SCH (20:53)
[2021-01-24] MEDS: Propofol 1,000 MG/100 ML VIAL IV PRN (00:25)
[2021-01-24 04:05] LABS: #Eosinphils 0.4 thou/uL (0.0-0.7); #Lymphocytes 2.3 thou/uL (1.20-3.40); #Monocytes 0.5 thou/uL (0.11-0.59); #Neutrophils 7.7 thou/uL (1.40-6.50); %Basophils 0.2 % (0.0-1.0); %Eosinophils 3.6 % (0.0-10.0); %Lymphocytes 21.3 % (21.0-51.0); %Monocytes 4.7 % (0.0-10.0); %Neutrophils 70.3 % (42.0-75.0); Hemoglobin 12.7 g/dL (12.0-16.0); Mean Corpuscular HGB CONC 32.9 g/dL (32.0-36.0); Mean Corpuscular Volume 94.2 fL (78.0-98.0); Mean Platelet Volume 10.5 fL (7.4-10.4); Platelet Count 136 thou/uL (130-400); RBC Distribution Width 14.8 % (11.5-14.5); Red Blood Cell (RBC) Count 4.09 mill/uL (4.20-5.40); White Blood Cell (WBC) Count 10.9 thou/uL (4.8-10.8)
[2021-01-24 04:24] LABS: Anion Gap 14 mmol/L (10-20); BUN (Urea Nitrogen) 37 mg/dL (9.8-20.1); Calc. Creatinine Clearance 49 mL/min (70-130); Calcium 8.5 mg/dL (7.8-10.44); Carbon Dioxide 27 mmol/L (22-29); Chloride 110 mmol/L (98-107); Glucose 117 mg/dL (70-105); Potassium 3.7 mmol/L (3.5-5.1); Sodium 147 mmol/L (136-145)
[2021-01-24] MEDS: Piperacillin/Tazobactam 3.375 GM in Sodium Chloride 0.9% 100 ML IVPB SCH ×3 (06:39→21:32)
[2021-01-24 07:47] LABS: Base Excess (BEa) 4.4 mEq/L (-2.0 to +3.0); CO2 Tension 26.2 mmHg (35.0-45.0); Calcium, Ionized (arterial) 1.12 mmol/L (1.12-1.30); Carboxyhemoglobin (COHb) 0.7 gm% (0.0-3.0); O2 Tension (PaO2), arterial 79.6 mmHg (80.0-100.0); Potassium - ABG Lab 3.78 mmol/L (3.70-5.30)
[2021-01-24 07:50] LABS: Puncture Site LRA
[2021-01-24] MEDS: pyridOXINE 50 MG (B6) TAB PO SCH ×2 (09:26→20:29)
[2021-01-24] MEDS: Ascorbic Acid 500 mg Chewable Tablet PO SCH ×2 (09:27→20:29)
[2021-01-24] MEDS: Sodium Chloride 0.45% 1,000 ML IV SCH ×2 (09:27→21:33)
[2021-01-24] MEDS: Cholecalciferol (Vitamin D3) 400 UNITS TAB PO SCH (09:27)
[2021-01-24] MEDS: Cyanocobalamin (Vitamin B-12) 1,000 MCG TAB PO SCH (09:27)
[2021-01-24 16:05] LABS: Actual Bicarbonate (HCO3a) 18.9 mEq/L (22-28); Base Excess (BEa) -2.9 mEq/L (-2.0 to +3.0); CO2 Tension 26.3 mmHg (35.0-45.0); Calcium, Ionized (arterial) 1.13 mmol/L (1.12-1.30); Carboxyhemoglobin (COHb) 1.2 gm% (0.0-3.0); O2 Tension (PaO2), arterial 65.2 mmHg (80.0-100.0); pH, Arterial 7.48 (7.35-7.45)
[2021-01-24 16:06] LABS: Puncture Site RRA
[2021-01-24 16:07] LABS: ALV-art Gradient 130.085 mmHg (0-20)
[2021-01-24] MEDS: Famotidine 20 MG TAB PO SCH (20:29)
[2021-01-24] MEDS: Enoxaparin Sodium 40 MG/0.4 ML SYRINGE SC SCH (20:42)
[2021-01-24] MEDS ORDERED: Acetaminophen 650 MG Suppository PR PRN (21:03)
[2021-01-24] MEDS: Dextrose 50% Abboject 50 ML SYRINGE SLOW IVP PRN (23:07)
[2021-01-24 23:20] LABS: Actual Bicarbonate (HCO3a) 21.6 mEq/L (22-28); Base Excess (BEa) -1.2 mEq/L (-2.0 to +3.0); CO2 Tension 30.8 mmHg (35.0-45.0); Carboxyhemoglobin (COHb) 1.1 gm% (0.0-3.0); Hemoglobin (Hb) 13.4 g/dL (12.0-16.0); O2 Tension (PaO2), arterial 70.3 mmHg (80.0-100.0); Potassium - ABG Lab 4.42 mmol/L (3.70-5.30); pH, Arterial 7.46 (7.35-7.45)
[2021-01-24 23:22] LABS: Puncture Site LRA
[2021-01-25] MEDS: Piperacillin/Tazobactam 3.375 GM in Sodium Chloride 0.9% 100 ML IVPB SCH ×3 (05:37→21:34)
[2021-01-25 07:36] LABS: Anion Gap 19 mmol/L (10-20); BUN (Urea Nitrogen) 44 mg/dL (9.8-20.1); Calc. Creatinine Clearance 41 mL/min (70-130); Carbon Dioxide 20 mmol/L (22-29); Chloride 111 mmol/L (98-107); Glucose 110 mg/dL (70-105); Potassium 5.2 mmol/L (3.5-5.1); Sodium 145 mmol/L (136-145)
[2021-01-25] MEDS: pyridOXINE 50 MG (B6) TAB PO SCH ×2 (08:53→20:32)
[2021-01-25] MEDS: Ascorbic Acid 500 mg Chewable Tablet PO SCH ×2 (08:53→20:31)
[2021-01-25] MEDS: Cyanocobalamin (Vitamin B-12) 1,000 MCG TAB PO SCH (08:53)
[2021-01-25] MEDS: Cholecalciferol (Vitamin D3) 400 UNITS TAB PO SCH (08:53)
[2021-01-25] MEDS ORDERED: Loperamide HCl 2 MG CAP PO PRN (11:52)
[2021-01-25] MEDS ORDERED: Ondansetron ODT 4 MG TAB PO PRN (11:52)
[2021-01-25] MEDS ORDERED: Cepastat Lozenges 1 LOZ PO PRN (11:52)
[2021-01-25] MEDS ORDERED: Loratadine 10 MG TAB PO PRN (11:52)
[2021-01-25] MEDS ORDERED: Senokot S 8.6-50 MG TAB PO PRN (11:52)
[2021-01-25] MEDS ORDERED: HYDROcodone/Acetaminophen 5/325 mg Tablet PO PRN (11:52)
[2021-01-25] MEDS ORDERED: Ondansetron PF 4 MG/2 ML Vial IVP PRN (11:52)
[2021-01-25] MEDS ORDERED: Hydrocerin (Eucerin) Cream 120 gm Jar TOP PRN (11:52)
[2021-01-25] MEDS ORDERED: Artificial Tear Sol 15 ML BOT EA EYE PRN (11:52)
[2021-01-25] MEDS ORDERED: Bisacodyl 5 MG TAB PO PRN (11:52)
[2021-01-25] MEDS ORDERED: Sodium Chloride 0.65% Nasal 44 ML BOT EA NARE PRN (11:52)
[2021-01-25] MEDS ORDERED: hydrALAZINE 20 MG/ML VIAL SLOW IVP PRN (11:52)
[2021-01-25] MEDS: Famotidine 20 MG TAB PO SCH (20:31)
[2021-01-25] MEDS: Enoxaparin Sodium 40 MG/0.4 ML SYRINGE SC SCH (20:32)
[2021-01-26] MEDS: Piperacillin/Tazobactam 3.375 GM in Sodium Chloride 0.9% 100 ML IVPB SCH (06:07)
[2021-01-26] MEDS: Furosemide 40 MG TAB PO SCH (06:07)
[2021-01-26] MEDS: pyridOXINE 50 MG (B6) TAB PO SCH ×3 (08:34→21:37)
[2021-01-26] MEDS: Ascorbic Acid 500 mg Chewable Tablet PO SCH ×3 (08:34→21:37)
[2021-01-26] MEDS: Amoxicillin/Potassium Clav 500 MG TAB PO SCH ×2 (08:35→21:34)
[2021-01-26] MEDS: Cyanocobalamin (Vitamin B-12) 1,000 MCG TAB PO SCH (08:35)
[2021-01-26] MEDS ORDERED: Carvedilol 3.125 MG TAB PO SCH (09:00)
[2021-01-26] MEDS: Cholecalciferol (Vitamin D3) 400 UNITS TAB PO SCH (09:57)
[2021-01-26 10:35] LABS: Anion Gap 21 mmol/L (10-20); BUN (Urea Nitrogen) 49 mg/dL (9.8-20.1); Calc. Creatinine Clearance 45 mL/min (70-130); Calcium 8.8 mg/dL (7.8-10.44); Carbon Dioxide 16 mmol/L (22-29); Chloride 109 mmol/L (98-107); Glucose 97 mg/dL (70-105); Potassium 5.2 mmol/L (3.5-5.1); Sodium 141 mmol/L (136-145)
[2021-01-26 12:03] LABS: SARS-CoV-2 PCR by NAA Not Detected (NotDetected)
[2021-01-26] MEDS ORDERED: Aspirin 81 mg Enteric Coated Tablet PO SCH (14:15)
[2021-01-26] MEDS ORDERED: Metoprolol Tartrate 5 MG/5 ML VIAL IVP SCH (16:45)
[2021-01-26] MEDS ORDERED: Metoprolol Tartrate 25 MG TAB PO SCH ×2 (17:00→21:45)
[2021-01-26] MEDS: Enoxaparin Sodium 40 MG/0.4 ML SYRINGE SC SCH (21:18)
[2021-01-26] MEDS: Famotidine 20 MG TAB PO SCH ×2 (21:18→21:37)
[2021-01-26] MEDS: Metoprolol Tartrate 25 MG TAB PO SCH ×2 (21:18→21:55)
[2021-01-26] MEDS: Zolpidem Tartrate 5 MG TAB PO PRN (21:20)
[2021-01-26] MEDS ORDERED: Metoprolol Tartrate 5 MG/5 ML VIAL ONE (21:36)
[2021-01-27] MEDS ORDERED: Digoxin 0.25 MG TAB PO SCH (10:00)
[2021-01-27] MEDS: Metoprolol Tartrate 25 MG TAB PO SCH ×2 (10:06→21:25)
[2021-01-27] MEDS: Furosemide 40 MG TAB PO SCH (10:06)
[2021-01-27] MEDS: Cholecalciferol (Vitamin D3) 400 UNITS TAB PO SCH (10:06)
[2021-01-27] MEDS: Ascorbic Acid 500 mg Chewable Tablet PO SCH ×2 (10:06→21:25)
[2021-01-27] MEDS: GUAIFENESIN SF SOLN 200 MG/10 ML UDCUP PO PRN ×2 (10:06→21:38)
[2021-01-27] MEDS: Aspirin 81 mg Enteric Coated Tablet PO SCH (10:14)
[2021-01-27] MEDS: pyridOXINE 50 MG (B6) TAB PO SCH ×2 (10:14→21:25)
[2021-01-27] MEDS: Cyanocobalamin (Vitamin B-12) 1,000 MCG TAB PO SCH (10:25)
[2021-01-27] MEDS: Amoxicillin/Potassium Clav 500 MG TAB PO SCH ×2 (11:04→21:25)
[2021-01-27] MEDS: Famotidine 20 MG TAB PO SCH (21:25)
[2021-01-27] MEDS: Enoxaparin Sodium 40 MG/0.4 ML SYRINGE SC SCH (21:25)
[2021-01-28] MEDS: Furosemide 40 MG TAB PO SCH (08:37)
[2021-01-28] MEDS: Ascorbic Acid 500 mg Chewable Tablet PO SCH ×2 (08:38→21:22)
[2021-01-28] MEDS: pyridOXINE 50 MG (B6) TAB PO SCH ×2 (08:38→21:23)
[2021-01-28] MEDS: Cholecalciferol (Vitamin D3) 400 UNITS TAB PO SCH (08:38)
[2021-01-28] MEDS: Digoxin 0.125 MG TAB PO SCH (08:38)
[2021-01-28] MEDS: Aspirin 81 mg Enteric Coated Tablet PO SCH (08:38)
[2021-01-28] MEDS: Cyanocobalamin (Vitamin B-12) 1,000 MCG TAB PO SCH (08:38)
[2021-01-28] MEDS: Amoxicillin/Potassium Clav 500 MG TAB PO SCH ×2 (10:02→21:22)
[2021-01-28] MEDS: Famotidine 20 MG TAB PO SCH (21:22)
[2021-01-28] MEDS: Zolpidem Tartrate 5 MG TAB PO PRN (21:22)
[2021-01-28] MEDS: Enoxaparin Sodium 40 MG/0.4 ML SYRINGE SC SCH (21:23)
[2021-01-29 06:07] LABS: Hemoglobin 14.4 g/dL (12.0-16.0); Mean Corpuscular HGB CONC 31.9 g/dL (32.0-36.0); Mean Corpuscular Volume 94.1 fL (78.0-98.0); Mean Platelet Volume 9.4 fL (7.4-10.4); Platelet Count 288 thou/uL (130-400); Red Blood Cell (RBC) Count 4.78 mill/uL (4.20-5.40)
[2021-01-29 06:16] LABS: ALT (SGPT) 38 U/L (8-55); AST (SGOT) 40 U/L (5-34); Albumin 2.5 g/dL (3.5-5.0); Alkaline Phosphatase 118 U/L (40-110); Anion Gap 15 mmol/L (10-20); BUN (Urea Nitrogen) 37 mg/dL (9.8-20.1); Bilirubin, Total 3.5 mg/dL (0.2-1.2); Calc. Creatinine Clearance 61 mL/min (70-130); Calcium 9.3 mg/dL (7.8-10.44); Carbon Dioxide 23 mmol/L (22-29); Chloride 106 mmol/L (98-107); Globulin 4.3 g/dL (2.4-3.5); Glucose 104 mg/dL (70-105); Magnesium 1.8 mg/dL (1.6-2.6); Phosphorus 3.4 mg/dL (2.3-4.7); Potassium 3.7 mmol/L (3.5-5.1); Protein, Total 6.8 g/dL (6.0-8.3); Sodium 140 mmol/L (136-145)
[2021-01-29 06:33] LABS: Band 2 % (5-11); Eosinophils 2 % (0-10); Lymphocytes 19 % (21-51); MDiff Complete? YES; Monocytes 6 % (0-10); Neutrophil 70 % (42-75); Nucleated RBC 9 % (0); White Blood Cell (WBC) Count 12.4 thou/uL (4.8-10.8)
[2021-01-29] MEDS: Cyanocobalamin (Vitamin B-12) 1,000 MCG TAB PO SCH (10:18)
[2021-01-29] MEDS: Cholecalciferol (Vitamin D3) 400 UNITS TAB PO SCH (10:18)
[2021-01-29] MEDS: Aspirin 81 mg Enteric Coated Tablet PO SCH (10:19)
[2021-01-29] MEDS: Digoxin 0.125 MG TAB PO SCH (10:19)
[2021-01-29] MEDS: Ascorbic Acid 500 mg Chewable Tablet PO SCH ×2 (10:19→22:35)
[2021-01-29] MEDS: Amoxicillin/Potassium Clav 500 MG TAB PO SCH ×2 (10:19→22:38)
[2021-01-29] MEDS: pyridOXINE 50 MG (B6) TAB PO SCH ×2 (10:19→22:35)
[2021-01-29] MEDS: Furosemide 40 MG TAB PO SCH (10:19)
[2021-01-29] MEDS ORDERED: Magnesium Oxide 400 MG TAB PO SCH (18:30)
[2021-01-29] MEDS ORDERED: Potassium Chloride 20 MEQ TAB PO SCH (18:30)
[2021-01-29] MEDS: Enoxaparin Sodium 40 MG/0.4 ML SYRINGE SC SCH (22:35)
[2021-01-29] MEDS: Famotidine 20 MG TAB PO SCH (22:36)
[2021-01-30] MEDS: HumaLOG 300 UNITS/3 ML VIAL SC PRN (03:20)
[2021-01-30] MEDS: Lisinopril 2.5 MG TAB PO SCH (10:08)
[2021-01-30] MEDS: Amoxicillin/Potassium Clav 500 MG TAB PO SCH ×2 (10:08→22:14)
[2021-01-30] MEDS: Magnesium Oxide 400 MG TAB PO SCH (10:09)
[2021-01-30] MEDS: Furosemide 40 MG TAB PO SCH (10:09)
[2021-01-30] MEDS: pyridOXINE 50 MG (B6) TAB PO SCH ×2 (10:09→22:15)
[2021-01-30] MEDS: Cyanocobalamin (Vitamin B-12) 1,000 MCG TAB PO SCH (10:09)
[2021-01-30] MEDS: Digoxin 0.125 MG TAB PO SCH (10:09)
[2021-01-30] MEDS: Ascorbic Acid 500 mg Chewable Tablet PO SCH ×2 (10:09→22:15)
[2021-01-30] MEDS: Aspirin 81 mg Enteric Coated Tablet PO SCH (10:09)
[2021-01-30] MEDS: Cholecalciferol (Vitamin D3) 400 UNITS TAB PO SCH (10:10)
[2021-01-30 11:33] LABS: Hemoglobin 13.7 g/dL (12.0-16.0); Mean Corpuscular Hemoglobin 29.9 pg (27.0-31.0); Mean Corpuscular Volume 93.4 fL (78.0-98.0); Mean Platelet Volume 9.5 fL (7.4-10.4); Platelet Count 275 thou/uL (130-400); RBC Distribution Width 15.1 % (11.5-14.5); Red Blood Cell (RBC) Count 4.58 mill/uL (4.20-5.40); White Blood Cell (WBC) Count 11.5 thou/uL (4.8-10.8)
[2021-01-30 11:55] LABS: Digoxin Less than 0.15 ng/mL (0.8-2.0)
[2021-01-30 11:58] LABS: Anion Gap 13 mmol/L (10-20); BUN (Urea Nitrogen) 33 mg/dL (9.8-20.1); Calc. Creatinine Clearance 58 mL/min (70-130); Carbon Dioxide 25 mmol/L (22-29); Chloride 107 mmol/L (98-107); Glucose 145 mg/dL (70-105); Potassium 4.4 mmol/L (3.5-5.1); Sodium 141 mmol/L (136-145)
[2021-01-30 12:13] LABS: Eosinophils 1 % (0-10); Lymphocytes 19 % (21-51); MDiff Complete? YES; Monocytes 4 % (0-10); Neutrophil 76 % (42-75); Platelet Morphology Comment Appears Adequate; Polychromasia SLIGHT = 2-3 cells (100X) (0-2/hpf)
[2021-01-30] MEDS: Famotidine 20 MG TAB PO SCH (22:14)
[2021-01-30] MEDS: Enoxaparin Sodium 40 MG/0.4 ML SYRINGE SC SCH (22:19)
[2021-01-31] MEDS: Zolpidem Tartrate 5 MG TAB PO PRN (02:48)
[2021-01-31] MEDS: Aspirin 81 mg Enteric Coated Tablet PO SCH (10:14)
[2021-01-31] MEDS: Furosemide 40 MG TAB PO SCH (10:14)
[2021-01-31] MEDS: Digoxin 0.125 MG TAB PO SCH (10:15)
[2021-01-31] MEDS: Cyanocobalamin (Vitamin B-12) 1,000 MCG TAB PO SCH (10:15)
[2021-01-31] MEDS: pyridOXINE 50 MG (B6) TAB PO SCH ×2 (10:15→21:13)
[2021-01-31] MEDS: Ascorbic Acid 500 mg Chewable Tablet PO SCH ×2 (10:15→21:13)
[2021-01-31] MEDS: Lisinopril 2.5 MG TAB PO SCH (10:15)
[2021-01-31] MEDS: Amoxicillin/Potassium Clav 500 MG TAB PO SCH ×2 (10:15→21:13)
[2021-01-31] MEDS: Magnesium Oxide 400 MG TAB PO SCH (10:16)
[2021-01-31] MEDS: Cholecalciferol (Vitamin D3) 400 UNITS TAB PO SCH (10:42)
[2021-01-31] MEDS: Famotidine 20 MG TAB PO SCH (21:13)
[2021-01-31] MEDS: Enoxaparin Sodium 40 MG/0.4 ML SYRINGE SC SCH (21:14)
[2021-02-01 06:10] LABS: ALT (SGPT) 37 U/L (8-55); AST (SGOT) 59 U/L (5-34); Albumin 2.7 g/dL (3.5-5.0); Alkaline Phosphatase 158 U/L (40-110); Anion Gap 20 mmol/L (10-20); BUN (Urea Nitrogen) 31 mg/dL (9.8-20.1); Bilirubin, Total 4.9 mg/dL (0.2-1.2); Calc. Creatinine Clearance 58 mL/min (70-130); Calcium 9.7 mg/dL (7.8-10.44); Carbon Dioxide 18 mmol/L (22-29); Chloride 106 mmol/L (98-107); Glucose 94 mg/dL (70-105); Magnesium 1.9 mg/dL (1.6-2.6); Phosphorus 3.8 mg/dL (2.3-4.7); Potassium 4.8 mmol/L (3.5-5.1); Protein, Total 7.7 g/dL (6.0-8.3); Sodium 139 mmol/L (136-145)
[2021-02-01] MEDS: Amoxicillin/Potassium Clav 500 MG TAB PO SCH ×2 (09:46→21:32)
[2021-02-01] MEDS: Aspirin 81 mg Enteric Coated Tablet PO SCH (09:46)
[2021-02-01] MEDS: Furosemide 40 MG TAB PO SCH (09:46)
[2021-02-01] MEDS: Magnesium Oxide 400 MG TAB PO SCH (09:46)
[2021-02-01] MEDS: Cholecalciferol (Vitamin D3) 400 UNITS TAB PO SCH (09:46)
[2021-02-01] MEDS: Ascorbic Acid 500 mg Chewable Tablet PO SCH ×2 (09:47→21:31)
[2021-02-01] MEDS: pyridOXINE 50 MG (B6) TAB PO SCH ×2 (09:47→21:31)
[2021-02-01] MEDS: Digoxin 0.125 MG TAB PO SCH (09:47)
[2021-02-01] MEDS: Lisinopril 2.5 MG TAB PO SCH (09:47)
[2021-02-01] MEDS: Cyanocobalamin (Vitamin B-12) 1,000 MCG TAB PO SCH (09:47)
[2021-02-01] MEDS: HumaLOG 300 UNITS/3 ML VIAL SC PRN (11:34)
[2021-02-01] MEDS: Famotidine 20 MG TAB PO SCH (21:31)
[2021-02-01] MEDS: Enoxaparin Sodium 40 MG/0.4 ML SYRINGE SC SCH (21:32)
[2021-02-02] MEDS: Aspirin 81 mg Enteric Coated Tablet PO SCH (08:00)
[2021-02-02] MEDS: pyridOXINE 50 MG (B6) TAB PO SCH ×2 (08:00→23:01)
[2021-02-02] MEDS: Lisinopril 2.5 MG TAB PO SCH (08:00)
[2021-02-02] MEDS: Magnesium Oxide 400 MG TAB PO SCH (08:00)
[2021-02-02] MEDS: Amoxicillin/Potassium Clav 500 MG TAB PO SCH ×2 (08:00→23:01)
[2021-02-02] MEDS: Furosemide 40 MG TAB PO SCH (08:00)
[2021-02-02] MEDS: Digoxin 0.125 MG TAB PO SCH (08:00)
[2021-02-02] MEDS: Cyanocobalamin (Vitamin B-12) 1,000 MCG TAB PO SCH (08:01)
[2021-02-02] MEDS: Ascorbic Acid 500 mg Chewable Tablet PO SCH ×2 (08:01→23:00)
[2021-02-02] MEDS: Cholecalciferol (Vitamin D3) 400 UNITS TAB PO SCH (11:00)
[2021-02-02 19:29] LABS: SARS-CoV-2 PCR by NAA Not Detected (NotDetected)
[2021-02-02] MEDS: Famotidine 20 MG TAB PO SCH (23:00)
[2021-02-03] MEDS: Enoxaparin Sodium 40 MG/0.4 ML SYRINGE SC SCH ×2 (01:51→20:54)
[2021-02-03] MEDS: pyridOXINE 50 MG (B6) TAB PO SCH ×3 (01:52→20:54)
[2021-02-03] MEDS: Amoxicillin/Potassium Clav 500 MG TAB PO SCH ×3 (01:52→20:54)
[2021-02-03] MEDS: Ascorbic Acid 500 mg Chewable Tablet PO SCH ×3 (01:52→20:54)
[2021-02-03] MEDS: Famotidine 20 MG TAB PO SCH ×2 (01:52→20:54)
[2021-02-03] MEDS: Dextrose 50% Abboject 50 ML SYRINGE SLOW IVP PRN (05:50)
[2021-02-03 06:31] LABS: Anion Gap 23 mmol/L (10-20); BUN (Urea Nitrogen) 33 mg/dL (9.8-20.1); Calc. Creatinine Clearance 57 mL/min (70-130); Calcium 9.8 mg/dL (7.8-10.44); Carbon Dioxide 20 mmol/L (22-29); Chloride 105 mmol/L (98-107); Glucose 67 mg/dL (70-105); Potassium 6.5 mmol/L (3.5-5.1); Sodium 141 mmol/L (136-145)
[2021-02-03 06:52] LABS: Hemoglobin 15.5 g/dL (12.0-16.0); Mean Corpuscular HGB CONC 32.6 g/dL (32.0-36.0); Mean Corpuscular Hemoglobin 31.9 pg (27.0-31.0); Platelet Count 172 thou/uL (130-400); RBC Distribution Width 19.9 % (11.5-14.5); Red Blood Cell (RBC) Count 4.85 mill/uL (4.20-5.40); White Blood Cell (WBC) Count 12.6 thou/uL (4.8-10.8)
[2021-02-03 07:47] LABS: Eosinophils 1 % (0-10); Lymphocytes 20 % (21-51); MDiff Complete? YES; Monocytes 11 % (0-10); Neutrophil 68 % (42-75); Nucleated RBC 5 % (0); Platelet Clumps SLIGHT; Platelet Morphology Comment Appears Adequate
[2021-02-03 09:18] LABS: Potassium 4.7 mmol/L (3.5-5.1)
[2021-02-03] MEDS: Cyanocobalamin (Vitamin B-12) 1,000 MCG TAB PO SCH (09:54)
[2021-02-03] MEDS: Cholecalciferol (Vitamin D3) 400 UNITS TAB PO SCH (09:54)
[2021-02-03] MEDS: Furosemide 40 MG TAB PO SCH (09:54)
[2021-02-03] MEDS: Digoxin 0.125 MG TAB PO SCH (09:54)
[2021-02-03] MEDS: Magnesium Oxide 400 MG TAB PO SCH (09:54)
[2021-02-03] MEDS: Aspirin 81 mg Enteric Coated Tablet PO SCH (09:55)
[2021-02-03] MEDS ORDERED: HumaLOG 300 UNITS/3 ML VIAL SC PRN (20:01)
[2021-02-03] MEDS ORDERED: Dextrose 5% in Water 1,000 ML IV PRN (20:01)
[2021-02-03] MEDS ORDERED: Dextrose 50% Abboject 50 ML SYRINGE SLOW IVP PRN (20:01)
[2021-02-04] MEDS: Ascorbic Acid 500 mg Chewable Tablet PO SCH ×3 (03:44→21:44)
[2021-02-04] MEDS: Famotidine 20 MG TAB PO SCH ×2 (03:44→21:44)
[2021-02-04] MEDS: pyridOXINE 50 MG (B6) TAB PO SCH ×3 (03:45→21:44)
[2021-02-04] MEDS: Aspirin 81 mg Enteric Coated Tablet PO SCH (09:11)
[2021-02-04] MEDS: Digoxin 0.125 MG TAB PO SCH (09:11)
[2021-02-04] MEDS: Furosemide 40 MG TAB PO SCH (09:12)
[2021-02-04] MEDS: Cholecalciferol (Vitamin D3) 400 UNITS TAB PO SCH (09:12)
[2021-02-04] MEDS: Magnesium Oxide 400 MG TAB PO SCH (09:12)
[2021-02-04] MEDS: Cyanocobalamin (Vitamin B-12) 1,000 MCG TAB PO SCH (09:12)
[2021-02-04] MEDS: Amoxicillin/Potassium Clav 500 MG TAB PO SCH ×2 (09:12→21:45)
[2021-02-04] MEDS ORDERED: Iopamidol-370 76% 500 ML 1 ML ONE (10:22)
[2021-02-04] MEDS: Sodium Chloride 0.9% 1,000 ML IV SCH ×2 (13:52→21:42)
[2021-02-04] MEDS: HumaLOG 300 UNITS/3 ML VIAL SC PRN (17:53)
[2021-02-04] MEDS: Enoxaparin Sodium 40 MG/0.4 ML SYRINGE SC SCH (18:52)
[2021-02-04] MEDS: Enoxaparin Sodium 80 MG/0.8 ML SYRINGE SC SCH (21:46)
[2021-02-05] MEDS: Sodium Chloride 0.9% 1,000 ML IV SCH ×4 (03:30→18:21)
[2021-02-05] MEDS: Cyanocobalamin (Vitamin B-12) 1,000 MCG TAB PO SCH (08:45)
[2021-02-05] MEDS: pyridOXINE 50 MG (B6) TAB PO SCH ×2 (08:45→21:13)
[2021-02-05] MEDS: Enoxaparin Sodium 80 MG/0.8 ML SYRINGE SC SCH ×3 (08:45→21:17)
[2021-02-05] MEDS: Magnesium Oxide 400 MG TAB PO SCH (08:45)
[2021-02-05] MEDS: Aspirin 81 mg Enteric Coated Tablet PO SCH (08:46)
[2021-02-05] MEDS: Furosemide 40 MG TAB PO SCH (08:46)
[2021-02-05] MEDS: Ascorbic Acid 500 mg Chewable Tablet PO SCH ×2 (08:46→21:13)
[2021-02-05] MEDS: Digoxin 0.125 MG TAB PO SCH (08:46)
[2021-02-05] MEDS: Amoxicillin/Potassium Clav 500 MG TAB PO SCH (08:53)
[2021-02-05] MEDS: Cholecalciferol (Vitamin D3) 400 UNITS TAB PO SCH (09:42)
[2021-02-05 10:22] LABS: ALT (SGPT) 38 U/L (8-55); AST (SGOT) 79 U/L (5-34); Albumin 2.7 g/dL (3.5-5.0); Alkaline Phosphatase 165 U/L (40-110); Anion Gap 17 mmol/L (10-20); BUN (Urea Nitrogen) 24 mg/dL (9.8-20.1); Bilirubin, Total 3.7 mg/dL (0.2-1.2); Calc. Creatinine Clearance 76 mL/min (70-130); Calcium 9.1 mg/dL (7.8-10.44); Carbon Dioxide 18 mmol/L (22-29); Chloride 107 mmol/L (98-107); Globulin 4.9 g/dL (2.4-3.5); Glucose 75 mg/dL (70-105); Magnesium 1.7 mg/dL (1.6-2.6); Potassium 4.4 mmol/L (3.5-5.1); Protein, Total 7.6 g/dL (6.0-8.3); Sodium 138 mmol/L (136-145)
[2021-02-05] MEDS: Lisinopril 2.5 MG TAB PO SCH (11:10)
[2021-02-05] MEDS: Enoxaparin Sodium 40 MG/0.4 ML SYRINGE SC SCH (21:12)
[2021-02-05] MEDS: Famotidine 20 MG TAB PO SCH (21:13)
[2021-02-05] MEDS: Zolpidem Tartrate 5 MG TAB PO PRN (21:13)
[2021-02-06] MEDS: Sodium Chloride 0.9% 1,000 ML IV SCH (03:33)
[2021-02-06 06:09] LABS: Anion Gap 14 mmol/L (10-20); BUN (Urea Nitrogen) 24 mg/dL (9.8-20.1); Calc. Creatinine Clearance 78 mL/min (70-130); Calcium 8.8 mg/dL (7.8-10.44); Carbon Dioxide 20 mmol/L (22-29); Chloride 109 mmol/L (98-107); Glucose 72 mg/dL (70-105); Potassium 4.4 mmol/L (3.5-5.1); Sodium 139 mmol/L (136-145)
[2021-02-06] MEDS: Cyanocobalamin (Vitamin B-12) 1,000 MCG TAB PO SCH (08:13)
[2021-02-06] MEDS: Aspirin 81 mg Enteric Coated Tablet PO SCH (08:13)
[2021-02-06] MEDS: Cholecalciferol (Vitamin D3) 400 UNITS TAB PO SCH (08:13)
[2021-02-06] MEDS: Lisinopril 2.5 MG TAB PO SCH (08:13)
[2021-02-06] MEDS: Magnesium Oxide 400 MG TAB PO SCH (08:13)
[2021-02-06] MEDS: Digoxin 0.125 MG TAB PO SCH (08:13)
[2021-02-06] MEDS: Famotidine 20 MG TAB PO SCH ×2 (08:13→21:42)
[2021-02-06] MEDS: pyridOXINE 50 MG (B6) TAB PO SCH ×2 (08:13→21:42)
[2021-02-06] MEDS: Furosemide 40 MG TAB PO SCH (08:13)
[2021-02-06] MEDS: Ascorbic Acid 500 mg Chewable Tablet PO SCH ×2 (08:13→21:42)
[2021-02-06] MEDS: Enoxaparin Sodium 80 MG/0.8 ML SYRINGE SC SCH ×2 (08:24→21:42)
[2021-02-07] MEDS ORDERED: Ziprasidone 20 MG VIAL IM PRN (01:15)
[2021-02-07] MEDS: Ascorbic Acid 500 mg Chewable Tablet PO SCH ×3 (01:31→23:41)
[2021-02-07] MEDS: Enoxaparin Sodium 80 MG/0.8 ML SYRINGE SC SCH ×3 (01:31→23:41)
[2021-02-07] MEDS: Famotidine 20 MG TAB PO SCH ×3 (01:32→23:40)
[2021-02-07] MEDS: pyridOXINE 50 MG (B6) TAB PO SCH ×3 (01:32→23:40)
[2021-02-07] MEDS ORDERED: Lorazepam 2 MG/ML VIAL SLOW IVP SCH (01:45)
[2021-02-07] MEDS: Cyanocobalamin (Vitamin B-12) 1,000 MCG TAB PO SCH (08:29)
[2021-02-07] MEDS: Lisinopril 2.5 MG TAB PO SCH (08:30)
[2021-02-07] MEDS: Aspirin 81 mg Enteric Coated Tablet PO SCH (08:31)
[2021-02-07] MEDS: Cholecalciferol (Vitamin D3) 400 UNITS TAB PO SCH (08:31)
[2021-02-07] MEDS: Digoxin 0.125 MG TAB PO SCH (08:31)
[2021-02-07] MEDS: Magnesium Oxide 400 MG TAB PO SCH (08:32)
[2021-02-07] MEDS: Furosemide 40 MG TAB PO SCH (08:32)
[2021-02-07 13:56] VITALS: BMI 30.3
[2021-02-07 14:59] LABS: Anion Gap 16 mmol/L (10-20); BUN (Urea Nitrogen) 23 mg/dL (9.8-20.1); Calc. Creatinine Clearance 65 mL/min (70-130); Calcium 9.3 mg/dL (7.8-10.44); Carbon Dioxide 21 mmol/L (22-29); Chloride 107 mmol/L (98-107); Glucose 94 mg/dL (70-105); Potassium 4.3 mmol/L (3.5-5.1); Sodium 140 mmol/L (136-145)
[2021-02-07 15:03] LABS: Anisocytosis SLIGHT = 6-15 cells (100X) (0-5/hpf); Hemoglobin 15.1 g/dL (12.0-16.0); Lymphocytes 24 % (21-51); MDiff Complete? YES; Macrocytosis SLIGHT = 6-15 cells (100X) (0-5/hpf); Mean Corpuscular HGB CONC 31.6 g/dL (32.0-36.0); Mean Corpuscular Hemoglobin 31.7 pg (27.0-31.0); Mean Platelet Volume 9.2 fL (7.4-10.4); Monocytes 9 % (0-10); Neutrophil 66 % (42-75); Nucleated RBC 7 % (0); Platelet Count 266 thou/uL (130-400); Platelet Morphology Comment Appears Adequate; Polychromasia SLIGHT = 2-3 cells (100X) (0-2/hpf); RBC Distribution Width 21.2 % (11.5-14.5); Red Blood Cell (RBC) Count 4.75 mill/uL (4.20-5.40); White Blood Cell (WBC) Count 8.7 thou/uL (4.8-10.8)
[2021-02-08] MEDS: Aspirin 81 mg Enteric Coated Tablet PO SCH (08:21)
[2021-02-08] MEDS: Cholecalciferol (Vitamin D3) 400 UNITS TAB PO SCH (08:22)
[2021-02-08] MEDS: Famotidine 20 MG TAB PO SCH ×2 (08:22→21:12)
[2021-02-08] MEDS: Enoxaparin Sodium 80 MG/0.8 ML SYRINGE SC SCH ×2 (08:22→21:12)
[2021-02-08] MEDS: Magnesium Oxide 400 MG TAB PO SCH (08:22)
[2021-02-08] MEDS: Cyanocobalamin (Vitamin B-12) 1,000 MCG TAB PO SCH (08:22)
[2021-02-08] MEDS: Digoxin 0.125 MG TAB PO SCH (08:22)
[2021-02-08] MEDS: pyridOXINE 50 MG (B6) TAB PO SCH ×2 (08:22→21:12)
[2021-02-08] MEDS: Furosemide 40 MG TAB PO SCH (08:22)
[2021-02-08] MEDS: Lisinopril 5 MG TAB PO SCH (08:22)
[2021-02-08] MEDS: Ascorbic Acid 500 mg Chewable Tablet PO SCH ×2 (08:22→21:12)
[2021-02-09] MEDS: Digoxin 0.125 MG TAB PO SCH (08:19)
[2021-02-09] MEDS: Furosemide 40 MG TAB PO SCH (08:19)
[2021-02-09] MEDS: Lisinopril 5 MG TAB PO SCH (08:19)
[2021-02-09] MEDS: Famotidine 20 MG TAB PO SCH (08:19)
[2021-02-09] MEDS: Aspirin 81 mg Enteric Coated Tablet PO SCH (08:19)
[2021-02-09] MEDS: Enoxaparin Sodium 80 MG/0.8 ML SYRINGE SC SCH (08:21)
[2021-02-09] MEDS: Cyanocobalamin (Vitamin B-12) 1,000 MCG TAB PO SCH (08:29)
[2021-02-09] MEDS: Magnesium Oxide 400 MG TAB PO SCH (08:29)
[2021-02-09] MEDS: pyridOXINE 50 MG (B6) TAB PO SCH (08:29)
[2021-02-09] MEDS: Ascorbic Acid 500 mg Chewable Tablet PO SCH (08:29)
[2021-02-09] MEDS: Cholecalciferol (Vitamin D3) 400 UNITS TAB PO SCH (08:29)
[2021-02-09 11:30] VITALS: BP 142/98; TEMP 97.4
== END 2021-02-09 14:37 | disposition home health service (06) | DRG 314 ==
LOC: ERS 13:50 → UNDOADMOB 19:40 → INTOOBSV 19:40 → 2SW 19:40 → 2NO 19:40 → OBSVTOIN 19:40 → 2NO 01-18 02:11 → 2SW 01-18 02:11 → CCU 01-18 02:11 → OBSVTOIN 01-18 02:27 → CCU 01-25 11:39 → NEURO 01-25 11:39 → CCU 01-25 11:39 → NEURO 02-02 14:19 → 2NO 02-06 20:46 → NEURO 02-06 20:46 → UNDODISIN 02-09 14:37 → UNDODISOB 02-09 14:37
PROVIDERS: ADMIT Student in an Organized Health Care Education/Training Program; ATTEND Internal Medicine
PROC: 5A12012 Performance of Cardiac Output, Single, Manual (ICD-10-PCS; principal; 2021-01-18)
PROC: 0BH17EZ Insertion of Endotracheal Airway into Trachea, Via Natural or Artificial Opening (ICD-10-PCS; 2021-01-18)
PROC: 5A1955Z Respiratory Ventilation, Greater than 96 Consecutive Hours (ICD-10-PCS; 2021-01-18)
PROC: 3E033XZ Introduction of Vasopressor into Peripheral Vein, Percutaneous Approach (ICD-10-PCS; 2021-01-18)
DX: I42.0 Dilated cardiomyopathy (principal); J96.00 Acute respiratory failure, unspecified whether with hypoxia or hypercapnia; I46.2 Cardiac arrest due to underlying cardiac condition; I50.23 Acute on chronic systolic (congestive) heart failure; R57.0 Cardiogenic shock; I13.0 Hypertensive heart and chronic kidney disease with heart failure and stage 1 through stage 4 chronic kidney disease, or unspecified chronic kidney disease; G93.1 Anoxic brain damage, not elsewhere classified; N18.4 Chronic kidney disease, stage 4 (severe); N17.9 Acute kidney failure, unspecified; J44.1 Chronic obstructive pulmonary disease with (acute) exacerbation; R18.8 Other ascites; E87.0 Hyperosmolality and hypernatremia; F14.20 Cocaine dependence, uncomplicated; I47.2 Ventricular tachycardia; Z51.5 Encounter for palliative care; F12.10 Cannabis abuse, uncomplicated; E87.5 Hyperkalemia; E11.22 Type 2 diabetes mellitus with diabetic chronic kidney disease; K29.70 Gastritis, unspecified, without bleeding; I08.3 Combined rheumatic disorders of mitral, aortic and tricuspid valves; F17.210 Nicotine dependence, cigarettes, uncomplicated; I25.10 Atherosclerotic heart disease of native coronary artery without angina pectoris; D72.829 Elevated white blood cell count, unspecified; E78.5 Hyperlipidemia, unspecified; E86.0 Dehydration; Z91.19 Patient's noncompliance with other medical treatment and regimen; Z86.73 Personal history of transient ischemic attack (TIA), and cerebral infarction without residual deficits; Z79.82 Long term (current) use of aspirin; Z79.899 Other long term (current) drug therapy; Z88.6 Allergy status to analgesic agent; Z20.822 Contact with and (suspected) exposure to COVID-19; Y92.238 Other place in hospital as the place of occurrence of the external cause; F41.9 Anxiety disorder, unspecified; F32.A Depression, unspecified; Z79.890 Hormone replacement therapy; Z82.5 Family history of asthma and other chronic lower respiratory diseases; Z80.0 Family history of malignant neoplasm of digestive organs
CPT/HCPCS: 36415; 36416; 36600; 70450; 71045; 71275; 74177; 80048; 80053; 80162; 80202; 80306; 81003; 81015; 82306; 82553; 82805; 83690; 83735; 83880; 84100; 84439; 84443; 84481; 84484; 85025; 85379; 85610; 85730; 87040; 87070; 87077; 87086; 87205; 87324; 87449; 93005; 93010; 93306; 94002; 94003; 94640; 96374; 96375; G0378; J0171; J0456; J1650; J1815; J2060; J2250; J2270; J2405; J2543; J2704; J2920; J3370; J3475; J3490; J7042; J7050; J7070; J7620; Q9967; U0002; U0003; U0005

== ENCOUNTER 2021-03-15 22:30 | Inpatient (IN) | payer OTHER ==
[2021-03-15 22:50] LABS: Actual Bicarbonate (HCO3a) 24.8 mEq/L (22-28); Analyzer IN Cardio ER; Base Excess (BEa) -0.1 mEq/L (-2.0 to +3.0); CO2 Tension 41.8 mmHg (35.0-45.0); Carboxyhemoglobin (COHb) 0.9 gm% (0.0-3.0); Hemoglobin (Hb) 14.8 g/dL (12.0-16.0); Potassium - ABG Lab 3.19 mmol/L (3.70-5.30); pH, Arterial 7.39 (7.35-7.45)
[2021-03-15] MEDS ORDERED: methylPREDNISolone Sod Succ/PF 125 MG/2 ML VIAL ONE (22:59)
[2021-03-15] MEDS ORDERED: Acetaminophen 500 MG TAB ONE (22:59)
[2021-03-15 23:10] LABS: Puncture Site LBA
[2021-03-15 23:25] LABS: ALT (SGPT) 33 U/L (8-55); AST (SGOT) 41 U/L (5-34); Albumin 3.2 g/dL (3.5-5.0); Alkaline Phosphatase 174 U/L (40-110); Anion Gap 24 mmol/L (10-20); BUN (Urea Nitrogen) 20 mg/dL (9.8-20.1); Bilirubin, Total 4.5 mg/dL (0.2-1.2); Calc. Creatinine Clearance 0 mL/min (70-130); Calcium 8.8 mg/dL (7.8-10.44); Carbon Dioxide 19 mmol/L (22-29); Chloride 103 mmol/L (98-107); Globulin 5.1 g/dL (2.4-3.5); Glucose 68 mg/dL (70-105); Potassium 3.9 mmol/L (3.5-5.1); Protein, Total 8.3 g/dL (6.0-8.3); Sodium 142 mmol/L (136-145)
[2021-03-15] MEDS ORDERED: Dextrose 50% Abboject 50 ML SYRINGE ONE (23:34)
[2021-03-16 00:36] LABS: SARS-CoV-2 NAA Rapid Test DETECTED (NotDetected)
[2021-03-16 00:42] LABS: Hemoglobin 14.3 g/dL (12.0-16.0); Mean Corpuscular HGB CONC 31.7 g/dL (32.0-36.0); Mean Corpuscular Hemoglobin 31.9 pg (27.0-31.0); Mean Platelet Volume 9.2 fL (7.4-10.4); Platelet Count 238 thou/uL (130-400); RBC Distribution Width 19.6 % (11.5-14.5); Red Blood Cell (RBC) Count 4.49 mill/uL (4.20-5.40); White Blood Cell (WBC) Count 13.2 thou/uL (4.8-10.8)
[2021-03-16 01:16] LABS: CKMB 1.9 ng/mL (0-6.6)
[2021-03-16 01:23] LABS: Band 1 % (5-11); Elliptocytes SLIGHT = 2-5 cells (100X) (0-1/hpf); Hypochromia SLIGHT = 6-15 cells (100X) (0-5/hpf); Lymphocytes 13 % (21-51); MDiff Complete? YES; Macrocytosis MODERATE=16-30 cells (100X) (0-5/hpf); Monocytes 4 % (0-10); Neutrophil 82 % (42-75); Nucleated RBC 4 % (0); Ovalocytes MODERATE= 6-15 cells (100X) (0-1/hpf); Platelet Morphology Comment Appears Adequate; Polychromasia SLIGHT = 2-3 cells (100X) (0-2/hpf); Stomatocytes MODERATE= 6-15 cells (100X) (0-1/hpf)
[2021-03-16] MEDS ORDERED: Furosemide 40 MG/4 ML VIAL ONE (01:29)
[2021-03-16] MEDS ORDERED: Acetaminophen 325 MG TAB PO PRN (01:53)
[2021-03-16] MEDS ORDERED: Ondansetron PF 4 MG/2 ML Vial IVP PRN (01:53)
[2021-03-16] MEDS ORDERED: Bisacodyl 5 MG TAB PO PRN (01:53)
[2021-03-16] MEDS ORDERED: Senokot S 8.6-50 MG TAB PO PRN (01:53)
[2021-03-16] MEDS ORDERED: Guaifenesin DM 100-10/5 ML UDCUP PO PRN (01:53)
[2021-03-16] MEDS ORDERED: Acetaminophen 650 MG Suppository PR PRN (01:53)
[2021-03-16] MEDS ORDERED: Melatonin 3 MG TAB PO PRN (01:57)
[2021-03-16] MEDS ORDERED: Non-Formulary Item 1 EACH (Albuterol Sulfate [Albuterol Sulfate Hfa] 8.5 GM Hfa.Aer.Ad) INH PRN (01:59)
[2021-03-16] MEDS ORDERED: Labetalol HCl 100 MG/20 ML VIAL SLOW IVP PRN (02:07)
[2021-03-16] MEDS ORDERED: Albuterol 200 PUFF (6.7GM INHALER) INH PRN (02:21)
[2021-03-16] MEDS ORDERED: Enoxaparin Sodium 40 MG/0.4 ML SYRINGE SC SCH ×2 (02:30→21:00)
[2021-03-16] MEDS ORDERED: hydrALAZINE 20 MG/ML VIAL SLOW IVP PRN (03:26)
[2021-03-16] MEDS ORDERED: Enoxaparin Sodium 40 MG/0.4 ML SYRINGE ONE (03:30)
[2021-03-16 04:01] LABS: Troponin I 0.043 ng/mL (< 0.028)
[2021-03-16 05:22] LABS: Elliptocytes SLIGHT = 2-5 cells (100X) (0-1/hpf); Hemoglobin 14.6 g/dL (12.0-16.0); Hypochromia SLIGHT = 6-15 cells (100X) (0-5/hpf); Lymphocytes 10 % (21-51); MDiff Complete? YES; Macrocytosis MODERATE=16-30 cells (100X) (0-5/hpf); Mean Corpuscular HGB CONC 30.5 g/dL (32.0-36.0); Mean Corpuscular Hemoglobin 31.1 pg (27.0-31.0); Mean Platelet Volume 9.4 fL (7.4-10.4); Monocytes 1 % (0-10); Neutrophil 89 % (42-75); Nucleated RBC 6 % (0); Platelet Count 245 thou/uL (130-400); Platelet Morphology Comment Appears Adequate; Polychromasia SLIGHT = 2-3 cells (100X) (0-2/hpf); RBC Distribution Width 19.7 % (11.5-14.5); Target Cells SLIGHT = 2-5 cells (100X) (0-1/hpf); Tear Drops SLIGHT = 2-5 cells (100X) (0-1/hpf); White Blood Cell (WBC) Count 11.4 thou/uL (4.8-10.8)
[2021-03-16 05:26] LABS: Troponin I 0.043 ng/mL (< 0.028)
[2021-03-16 05:40] LABS: Anion Gap 23 mmol/L (10-20); BUN (Urea Nitrogen) 23 mg/dL (9.8-20.1); Calc. Creatinine Clearance 0 mL/min (70-130); Calcium 9.2 mg/dL (7.8-10.44); Carbon Dioxide 22 mmol/L (22-29); Chloride 100 mmol/L (98-107); Glucose 115 mg/dL (70-105); Potassium 3.8 mmol/L (3.5-5.1); Sodium 141 mmol/L (136-145)
[2021-03-16] MEDS ORDERED: Levothyroxine Sodium 50 MCG TAB PO SCH (06:00)
[2021-03-16 06:37] VITALS: TEMP 96.7
[2021-03-16] MEDS ORDERED: Cyanocobalamin (Vitamin B-12) 1,000 MCG TAB PO SCH (09:00)
[2021-03-16] MEDS ORDERED: Famotidine/PF 20 mg/2ml Vial SLOW IVP SCH (09:00)
[2021-03-16] MEDS ORDERED: Ascorbic Acid 500 mg Chewable Tablet PO SCH (09:00)
[2021-03-16] MEDS ORDERED: Zinc Sulfate 220 MG CAP PO SCH (09:00)
[2021-03-16] MEDS ORDERED: Dexamethasone 4 mg/ml Vial SLOW IVP SCH (09:00)
[2021-03-16] MEDS ORDERED: pyridOXINE 50 MG (B6) TAB PO SCH (09:00)
[2021-03-16] MEDS ORDERED: Cholecalciferol 1,000 UNITS (25 MCG) TAB PO SCH (09:00)
[2021-03-16] MEDS ORDERED: Thiamine 100 MG TAB PO SCH (09:00)
[2021-03-16] MEDS ORDERED: Digoxin 0.125 MG TAB PO SCH (09:00)
[2021-03-16] MEDS ORDERED: Folic Acid 1 MG TAB PO SCH (09:00)
[2021-03-16] MEDS ORDERED: Lisinopril 5 MG TAB PO SCH (09:00)
[2021-03-16 09:58] LABS: Amphetamine Not Detected (NotDetected); Barbiturates Screen Not Detected (NotDetected); Benzodiazepine Screen Not Detected (NotDetected); Cocaine Metabolite Screen Not Detected (NotDetected); Methadone Not Detected (NotDetected); Methamphetamine Not Detected (NotDetected); Opiate Screen Not Detected (NotDetected); Oxycodone Screen Not Detected (NotDetected); Phencyclidine (PCP) Not Detected (NotDetected); THC/Cannabinoid Screen Not Detected (NotDetected); Tricyclic Screen Not Detected (NotDetected)
[2021-03-16] MEDS ORDERED: Dexamethasone 10 MG/ML VIAL ONE (11:19)
[2021-03-16] MEDS ORDERED: Famotidine/PF 20 mg/2ml Vial ONE (11:20)
[2021-03-16 11:43] VITALS: BP 132/69
[2021-03-16] MEDS ORDERED: Atorvastatin Calcium 40 MG TAB PO SCH (21:00)
== END 2021-03-16 02:38 | disposition home or self-care (01) | DRG 177 ==
LOC: ERS 22:30 → ERHOLD 03-16 01:42
PROVIDERS: ADMIT Student in an Organized Health Care Education/Training Program; ATTEND Internal Medicine
PROC: 3E0333Z Introduction of Anti-inflammatory into Peripheral Vein, Percutaneous Approach (ICD-10-PCS; principal; 2021-03-16)
DX: U07.1 COVID-19 (principal); J96.01 Acute respiratory failure with hypoxia; I50.23 Acute on chronic systolic (congestive) heart failure; J44.1 Chronic obstructive pulmonary disease with (acute) exacerbation; I42.9 Cardiomyopathy, unspecified; R79.89 Other specified abnormal findings of blood chemistry; I11.0 Hypertensive heart disease with heart failure; E11.9 Type 2 diabetes mellitus without complications; F14.10 Cocaine abuse, uncomplicated; Z79.82 Long term (current) use of aspirin; Z79.890 Hormone replacement therapy; Z79.51 Long term (current) use of inhaled steroids; Z79.52 Long term (current) use of systemic steroids; Z79.899 Other long term (current) drug therapy; Z86.74 Personal history of sudden cardiac arrest; Z86.73 Personal history of transient ischemic attack (TIA), and cerebral infarction without residual deficits; Z88.5 Allergy status to narcotic agent
CPT/HCPCS: 36415; 36416; 36600; 71045; 80048; 80053; 80306; 82553; 82805; 83880; 84484; 85025; 85379; 93005; J1100; J1650; J1940; J2930; S0028; U0002

== ENCOUNTER 2021-03-17 08:36 | Emergency (ER) | payer OTHER ==
[2021-03-17] MEDS ORDERED: Dexamethasone 10 MG/ML VIAL ONE (09:36)
[2021-03-17] MEDS ORDERED: Furosemide 40 MG/4 ML VIAL ONE (09:36)
[2021-03-17 09:59] LABS: Hemoglobin 14.4 g/dL (12.0-16.0); Mean Corpuscular HGB CONC 31.5 g/dL (32.0-36.0); Mean Corpuscular Hemoglobin 31.8 pg (27.0-31.0); Mean Platelet Volume 11.2 fL (7.4-10.4); Platelet Count 169 thou/uL (130-400); RBC Distribution Width 20.4 % (11.5-14.5); Red Blood Cell (RBC) Count 4.52 mill/uL (4.20-5.40); White Blood Cell (WBC) Count 19.1 thou/uL (4.8-10.8)
[2021-03-17 10:15] LABS: Band 2 % (5-11); Lymphocytes 18 % (21-51); MDiff Complete? YES; Monocytes 4 % (0-10); Neutrophil 76 % (42-75); Nucleated RBC 3 % (0); Platelet Morphology Comment Appears Adequate; RBC Morphology Normal
[2021-03-17] MEDS ORDERED: Albuterol 200 PUFF (6.7GM INHALER) ONE (10:32)
== END 2021-03-17 11:37 | disposition home or self-care (01) ==
LOC: ERS 08:36
DX: J44.1 Chronic obstructive pulmonary disease with (acute) exacerbation (principal); I11.0 Hypertensive heart disease with heart failure; I50.9 Heart failure, unspecified; E11.9 Type 2 diabetes mellitus without complications; Z79.52 Long term (current) use of systemic steroids; Z79.899 Other long term (current) drug therapy
CPT/HCPCS: 36415; 71045; 83880; 85025; 93005; 94664; 96374; 96375; J1100; J1940

== ENCOUNTER 2021-04-07 22:49 | Emergency (ER) | payer OTHER ==
[2021-04-07] MEDS ORDERED: predniSONE 20 MG TAB ONE (23:11)
[2021-04-07 23:44] LABS: #Basophils 0.1 thou/uL (0.0-0.2); #Eosinphils 0.2 thou/uL (0.0-0.7); #Lymphocytes 2.2 thou/uL (1.20-3.40); #Monocytes 0.7 thou/uL (0.11-0.59); #Neutrophils 4.2 thou/uL (1.40-6.50); %Basophils 0.8 % (0.0-1.0); %Eosinophils 2.3 % (0.0-10.0); %Lymphocytes 29.7 % (21.0-51.0); %Monocytes 9.4 % (0.0-10.0); %Neutrophils 57.9 % (42.0-75.0); Hemoglobin 13.4 g/dL (12.0-16.0); Mean Corpuscular HGB CONC 30.4 g/dL (32.0-36.0); Mean Corpuscular Hemoglobin 31.2 pg (27.0-31.0); Mean Platelet Volume 8.6 fL (7.4-10.4); Platelet Count 301 thou/uL (130-400); RBC Distribution Width 18.6 % (11.5-14.5); Red Blood Cell (RBC) Count 4.28 mill/uL (4.20-5.40); White Blood Cell (WBC) Count 7.3 thou/uL (4.8-10.8)
[2021-04-08 00:01] LABS: ALT (SGPT) 14 U/L (8-55); AST (SGOT) 29 U/L (5-34); Albumin 2.8 g/dL (3.5-5.0); Alkaline Phosphatase 193 U/L (40-110); Anion Gap 13 mmol/L (10-20); BUN (Urea Nitrogen) 15 mg/dL (9.8-20.1); Bilirubin, Total 2.7 mg/dL (0.2-1.2); Calc. Creatinine Clearance 0 mL/min (70-130); Calcium 8.7 mg/dL (7.8-10.44); Carbon Dioxide 30 mmol/L (22-29); Chloride 104 mmol/L (98-107); Globulin 3.9 g/dL (2.4-3.5); Glucose 104 mg/dL (70-105); Potassium 3.3 mmol/L (3.5-5.1); Protein, Total 6.7 g/dL (6.0-8.3); Sodium 144 mmol/L (136-145)
[2021-04-08 00:42] LABS: Bilirubin 1+ (Negative); Blood, Urine Trace (Negative); Calcium Oxalate Crystals 1+ HPF (None Seen); Clarity Clear (Clear); Glucose, Urine (Dipstick) Normal (Negative); Ketone, Urine Negative (Negative); Leukocyte 500 Leu/uL (Negative); Nitrite Negative (Negative); Protein, Urine (Dipstick) 70 mg/dL (Neg-Trace); Specific Gravity, Urine 1.023 (1.002-1.036); Urobilinogen 3 mg/dL (Less than 2); WBC/HPF Greater than 50 HPF (0-3); pH, Urine 5.5 (5.0-9.0)
[2021-04-08 00:43] LABS: Bacteria/HPF 1+ HPF (None Seen)
[2021-04-08] MEDS ORDERED: Iopamidol 370 76% 100 ML VIAL ONE (09:23)
== END 2021-04-08 01:58 | disposition home or self-care (01) ==
LOC: ERS 22:49
DX: J44.1 Chronic obstructive pulmonary disease with (acute) exacerbation (principal); Z86.73 Personal history of transient ischemic attack (TIA), and cerebral infarction without residual deficits; I11.0 Hypertensive heart disease with heart failure; I50.9 Heart failure, unspecified; E11.9 Type 2 diabetes mellitus without complications
CPT/HCPCS: 36415; 71045; 71275; 80053; 81003; 81015; 83880; 84484; 85025; 85379; 93005; 93970; J7512; J7620; Q9967

== ENCOUNTER 2021-04-09 12:41 | Emergency (ER) | payer OTHER ==
[2021-04-09 13:32] LABS: #Basophils 0.1 thou/uL (0.0-0.2); #Eosinphils 0.1 thou/uL (0.0-0.7); #Lymphocytes 3.4 thou/uL (1.20-3.40); #Monocytes 1.1 thou/uL (0.11-0.59); #Neutrophils 6.4 thou/uL (1.40-6.50); %Basophils 0.5 % (0.0-1.0); %Eosinophils 0.5 % (0.0-10.0); %Monocytes 10.1 % (0.0-10.0); Hemoglobin 13.9 g/dL (12.0-16.0); Mean Corpuscular HGB CONC 30.5 g/dL (32.0-36.0); Mean Platelet Volume 8.6 fL (7.4-10.4); Platelet Count 296 thou/uL (130-400); Red Blood Cell (RBC) Count 4.48 mill/uL (4.20-5.40); White Blood Cell (WBC) Count 11.1 thou/uL (4.8-10.8)
[2021-04-09 14:01] LABS: ALT (SGPT) 14 U/L (8-55); AST (SGOT) 29 U/L (5-34); Albumin 2.8 g/dL (3.5-5.0); Alkaline Phosphatase 166 U/L (40-110); Anion Gap 14 mmol/L (10-20); BUN (Urea Nitrogen) 15 mg/dL (9.8-20.1); Bilirubin, Total 2.7 mg/dL (0.2-1.2); Calc. Creatinine Clearance 0 mL/min (70-130); Calcium 8.6 mg/dL (7.8-10.44); Carbon Dioxide 24 mmol/L (22-29); Chloride 105 mmol/L (98-107); Globulin 4.2 g/dL (2.4-3.5); Glucose 117 mg/dL (70-105); Potassium 3.1 mmol/L (3.5-5.1); Sodium 140 mmol/L (136-145)
[2021-04-09] MEDS ORDERED: Furosemide 20 MG/2 ML VIAL ONE ×2 (15:01)
[2021-04-09] MEDS ORDERED: Potassium Chloride 20 MEQ TAB ONE (15:04)
== END 2021-04-09 15:07 | disposition home or self-care (01) ==
LOC: ERS 12:41
DX: I11.0 Hypertensive heart disease with heart failure (principal); I50.9 Heart failure, unspecified; J44.1 Chronic obstructive pulmonary disease with (acute) exacerbation; Z86.73 Personal history of transient ischemic attack (TIA), and cerebral infarction without residual deficits; Z87.891 Personal history of nicotine dependence
CPT/HCPCS: 36415; 71045; 80053; 83880; 85025; 93005; 96374; J1940

== ENCOUNTER 2021-04-16 08:57 | Emergency (ER) | payer OTHER ==
[2021-04-16] MEDS ORDERED: Furosemide 40 MG/4 ML VIAL ONE (09:29)
[2021-04-16 10:22] LABS: #Eosinphils 0.1 thou/uL (0.0-0.7); #Lymphocytes 1.7 thou/uL (1.20-3.40); #Monocytes 0.5 thou/uL (0.11-0.59); #Neutrophils 8.4 thou/uL (1.40-6.50); %Basophils 0.3 % (0.0-1.0); %Eosinophils 0.5 % (0.0-10.0); %Lymphocytes 16.1 % (21.0-51.0); %Monocytes 4.5 % (0.0-10.0); %Neutrophils 78.7 % (42.0-75.0); Hemoglobin 14.4 g/dL (12.0-16.0); Mean Corpuscular HGB CONC 30.5 g/dL (32.0-36.0); Mean Corpuscular Hemoglobin 30.8 pg (27.0-31.0); Mean Platelet Volume 8.6 fL (7.4-10.4); Platelet Count 217 thou/uL (130-400); RBC Distribution Width 18.1 % (11.5-14.5); Red Blood Cell (RBC) Count 4.68 mill/uL (4.20-5.40); White Blood Cell (WBC) Count 10.7 thou/uL (4.8-10.8)
[2021-04-16 11:36] LABS: ALT (SGPT) 21 U/L (8-55); AST (SGOT) 51 U/L (5-34); Albumin 2.9 g/dL (3.5-5.0); Alkaline Phosphatase 140 U/L (40-110); Anion Gap 15 mmol/L (10-20); BUN (Urea Nitrogen) 17 mg/dL (9.8-20.1); Bilirubin, Total 2.4 mg/dL (0.2-1.2); Calc. Creatinine Clearance 0 mL/min (70-130); Carbon Dioxide 25 mmol/L (22-29); Chloride 104 mmol/L (98-107); Globulin 3.5 g/dL (2.4-3.5); Glucose 77 mg/dL (70-105); Potassium 3.4 mmol/L (3.5-5.1); Protein, Total 6.4 g/dL (6.0-8.3); Sodium 141 mmol/L (136-145)
== END 2021-04-16 13:10 | disposition home or self-care (01) ==
LOC: ERS 08:57
DX: I11.0 Hypertensive heart disease with heart failure (principal); I50.9 Heart failure, unspecified; E11.9 Type 2 diabetes mellitus without complications; J44.9 Chronic obstructive pulmonary disease, unspecified; Z86.73 Personal history of transient ischemic attack (TIA), and cerebral infarction without residual deficits; Z87.891 Personal history of nicotine dependence
CPT/HCPCS: 36415; 71045; 80053; 83880; 84484; 85025; 93005; 96374; J1940

== ENCOUNTER 2021-07-03 14:28 | Emergency (ER) | payer OTHER ==
[2021-07-03 15:16] LABS: #Basophils 0.1 thou/uL (0.0-0.2); #Eosinphils 0.1 thou/uL (0.0-0.7); #Lymphocytes 2.9 thou/uL (1.20-3.40); #Monocytes 0.9 thou/uL (0.11-0.59); #Neutrophils 3.8 thou/uL (1.40-6.50); %Basophils 1.1 % (0.0-1.0); %Eosinophils 1.3 % (0.0-10.0); %Lymphocytes 37.2 % (21.0-51.0); %Monocytes 11.2 % (0.0-10.0); %Neutrophils 49.1 % (42.0-75.0); Hemoglobin 14.1 g/dL (12.0-16.0); Mean Corpuscular HGB CONC 30.6 g/dL (32.0-36.0); Mean Platelet Volume 9.4 fL (7.4-10.4); Platelet Count 224 thou/uL (130-400); RBC Distribution Width 15.8 % (11.5-14.5); White Blood Cell (WBC) Count 7.7 thou/uL (4.8-10.8)
[2021-07-03 15:30] LABS: ALT (SGPT) 12 U/L (8-55); AST (SGOT) 25 U/L (5-34); Albumin 3.4 g/dL (3.5-5.0); Alkaline Phosphatase 156 U/L (40-110); Anion Gap 14 mmol/L (10-20); BUN (Urea Nitrogen) 37 mg/dL (9.8-20.1); Bilirubin, Total 2.8 mg/dL (0.2-1.2); Calc. Creatinine Clearance 0 mL/min (70-130); Calcium 9.6 mg/dL (7.8-10.44); Carbon Dioxide 25 mmol/L (22-29); Chloride 105 mmol/L (98-107); Globulin 4.5 g/dL (2.4-3.5); Glucose 105 mg/dL (70-105); Potassium 3.6 mmol/L (3.5-5.1); Protein, Total 7.9 g/dL (6.0-8.3); Sodium 140 mmol/L (136-145)
[2021-07-03 16:18] LABS: Acetaminophen Less than 10.0 mcg/mL (10.0-30.0); Alcohol Less than 10 mg/dL (Less than 10); Salicylate Less than 8.0 mg/dL (15.0-30.0)
[2021-07-03 20:29] LABS: SARS-CoV-2 NAA Rapid Test Not Detected (NotDetected)
[2021-07-03] MEDS ORDERED: Thiamine 100 MG TAB PO SCH (21:30)
[2021-07-03] MEDS ORDERED: Lisinopril 5 MG TAB PO SCH (21:30)
[2021-07-03] MEDS ORDERED: Atorvastatin Calcium 40 MG TAB PO SCH (21:30)
[2021-07-03] MEDS ORDERED: Furosemide 40 MG TAB PO SCH (21:30)
[2021-07-03] MEDS ORDERED: Levothyroxine Sodium 50 MCG TAB PO SCH (21:30)
[2021-07-03] MEDS ORDERED: traZODone HCl 50 MG TAB ONE (21:52)
[2021-07-03] MEDS ORDERED: Ibuprofen 800 MG TAB PO SCH (22:00)
[2021-07-04] MEDS ORDERED: Lisinopril 5 MG TAB PO SCH (08:00)
[2021-07-04] MEDS ORDERED: Thiamine 100 MG TAB PO SCH (08:00)
[2021-07-04] MEDS ORDERED: Levothyroxine Sodium 50 MCG TAB PO SCH (08:00)
[2021-07-04] MEDS ORDERED: Atorvastatin Calcium 40 MG TAB PO SCH (08:00)
[2021-07-04] MEDS ORDERED: Furosemide 40 MG TAB ONE (08:02)
[2021-07-04] MEDS ORDERED: Furosemide 40 MG TAB PO SCH (09:00)
== END 2021-07-03 16:27 | disposition short-term general hospital (02) ==
LOC: ERS 14:28
DX: R45.851 Suicidal ideations (principal); I50.9 Heart failure, unspecified; I11.0 Hypertensive heart disease with heart failure; E11.9 Type 2 diabetes mellitus without complications; J44.9 Chronic obstructive pulmonary disease, unspecified; Z79.890 Hormone replacement therapy; Z79.899 Other long term (current) drug therapy; Z86.73 Personal history of transient ischemic attack (TIA), and cerebral infarction without residual deficits; Z87.891 Personal history of nicotine dependence
CPT/HCPCS: 36415; 80053; 80307; 83880; 85025; 93005; J7620; U0002

== ENCOUNTER 2021-08-12 14:41 | Emergency (ER) | payer OTHER ==
[2021-08-12] MEDS ORDERED: Lisinopril 10 MG TAB ONE (15:54)
[2021-08-12] MEDS ORDERED: Furosemide 40 MG TAB ONE (15:54)
[2021-08-12] MEDS ORDERED: Metoprolol Tartrate 25 MG TAB ONE (15:54)
== END 2021-08-12 16:21 | disposition home or self-care (01) ==
LOC: ERS 14:41
DX: R06.00 Dyspnea, unspecified (principal); K02.9 Dental caries, unspecified; I11.0 Hypertensive heart disease with heart failure; I50.9 Heart failure, unspecified; E11.9 Type 2 diabetes mellitus without complications; J44.9 Chronic obstructive pulmonary disease, unspecified; Z86.73 Personal history of transient ischemic attack (TIA), and cerebral infarction without residual deficits; Z79.899 Other long term (current) drug therapy